=== PATIENT | male | born 1960 | race Caucasian/White ===

== ENCOUNTER 2018-11-21 18:55 | Inpatient (IN) ==
[2018-11-21 19:12] LABS: ABG BASE EXCESS 1.7 mmol/L (-2.0-2.0); ABG HCO3 29.2 mmol/L (22-26)
[2018-11-21 19:13] LABS: ABG ALLEN TEST POS
[2018-11-21] MEDS ORDERED: DUONEB 0.5 MG/3 MG NEB ONE (19:15)
[2018-11-21] MEDS ORDERED: DUONEB 0.5 MG/3 MG ONE (19:21)
[2018-11-21 19:35] LABS: EOSINOPHILS % (AUTO) 0.1 % (0.9-2.9)
--- NOTE | 2018-11-21 19:35 | DR.SOBA ---
HPI Time Seen Time Seen by Provider: 11/21/18 19:33 Primary Care Physician Primary Care Physician: RUBEN HPI Comment HPI Comment: PATIENT SAID SYMTOMS WORSE TODAY. OXYGEN SATURATION WAS LOW IN TRIAGE. NO FEVER. NON PRODUCTIVE COUGH AND WHEEZING WITH LOWER EXTREMITY EDEMA PRESENT. Complaints Chief Complaint Doctors Comments: INCREASING SOB FOR 4 DAYS. Chief Complaint:: SHORT OF BREATH FOR THE LAST 4 DAYS, WORSE TONIGHT Self Treatment fo Chief Complaint: OTC MEDS Reviewed Nurses Notes Reviewed: Yes Source History Provided: Patient Mode of Arrival Mode of Arrival: Ambulatory Timing Onset of Chief Complaint: 11/18/18 Duration Duration: Days Context Onset:: At Rest and With Light Exertion PE Risk Factors:: None History of:: None Currently on:: Neither Prehospital Care:: None Modifying Factors Worsens:: Nothing Improves:: Nothing Associated Signs and Symptoms Associated Signs and Symptoms: Wheeze, Cough and Chest Pain If Chest Pain Quality: Pleuritic Location: Chest Wall If Cough Cough: Nonproductive PMH PMH Past Medical History: No Past Surgical History: No Family History History of Family Medical Conditions: No Social History Does patient currently use any type of tobacco product: Yes Have you used tobacco products in the last 12 months: Yes Type of Tobacco Use: Cigarettes How many years tobacco product used: 40 Does any household member use tobacco: Yes Alcohol Use: None Do you use any recreational Drugs:: No Lives With: Alone Lives Where: Home infectious screening Have you traveled outside the country in the last 6 months?: No Isolation: Standard ROS Review of Systems Constitutional: Weakness and Fatigue Eyes: No Symptoms Reported ENTM: No Symptoms Reported Respiratoy: Non-Productive Cough, Short of Breath and Wheezing Cardiovascular: Chest Pain and Edema Gastrointestinal/Abdominal: No Symptoms Reported Genitourinary: No Symptoms Reported Neurological: No Symptoms Reported Musculoskeletal: No Symptoms Reported Integumentary: Other (CHRONIC STASIS DERMATITIS.) Hematologic/Lymphatic: No Symptoms Reported Endocrine: No Symptoms Reported Psychiatric: No Symptoms Reported All Other Systems: Reviewed and Negative PE Vital Signs Vitals: Temperature 97.6 F Pulse Rate [Apical] 94 Pulse Rate 83 Respiratory Rate 25 Blood Pressure [Left Arm] 147/69 Blood Pressure 131/75 O2 Sat by Pulse Oximetry 86 General Limitations: No Limitations General Appearance: Alert and In No Apparent Distress Head Head Exam: Normal Inspection Eyes Eye exam: Normal Appearance ENT ENT Exam: Normal Exam Neck Neck Exam: Normal Inspection and Trachea Midline; negative Tenderness, Meningismus and Lymphadenopathy Chest Chest Inspection: Symmetric Chest Wall Rise Respiratory Respiratory Exam: Respiratory Distress Respiratory Exam: Bilateral: Wheezing and Bilateral: Rhonchi, Upper: Wheezing and Upper: Rhonchi and Lower: Wheezing and Lower: Rhonchi Cardiovascular Cardiovascular Exam: Regular Rate and Normal Rhythm Abdominal Exam Abdominal Exam: Normal Inspection, Normal Bowel Sounds and Soft; negative Tenderness Extremities 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 Education/Counseling Education/Counseling: Patient Educated On: Diagnosis ROR Labs Reviewed Laboratory Results Reviewed?: Yes Result Diagrams: 11/23/18 05:05 11/23/18 05:05 Laboratory: 11/21/18 19:50 Sputum - Expectorated Sputum Sputum Culture - Preliminary 11/21/18 19:50 Sputum - Expectorated Sputum - Final 11/21/18 19:25 Blood Blood Culture - Preliminary 11/21/18 19:20 Blood Blood Culture - Preliminary WBC 11.5 X10^3/uL (3.6-10.0) H 11/23/18 05:05 RBC 7.49 X10^6/uL (4.7-6.0) H 11/23/18 05:05 Hgb 18.6 g/dL (13.5-18.0) H 11/23/18 05:05 Hct 59.8 % (42.0-54.0) H* 11/23/18 05:05 MCV 79.9 fL (80.0-100.0) L 11/23/18 05:05 MCH 24.9 pg (27.0-34.0) L 11/23/18 05:05 MCHC 31.2 g/dL (33.0-35.0) L 11/23/18 05:05 RDW 19.3 % (11.6-16.5) H 11/23/18 05:05 Plt Count 163 X10^3/uL (150.0-450.0) 11/23/18 05:05 Plt Count Comment Adequate (ADEQUATE) 11/23/18 05:05 MPV 9.5 fL (7.4-11.0) 11/23/18 05:05 Neut % (Auto) 83.5 % (42.0-75.0) H 11/23/18 05:05 Lymph % (Auto) 8.0 % (21.0-51.0) L 11/23/18 05:05 [place] % (Auto) 8.2 % (0.0-13.0) 11/23/18 05:05 Eos % (Auto) 0.0 % (0.9-2.9) L 11/23/18 05:05 Baso % (Auto) 0.3 % (0.2-1.0) 11/23/18 05:05 Neut # (Auto) 9.6 x10^3/uL (2.2-4.8) H 11/23/18 05:05 Lymph # (Auto) 0.9 X10^3/uL (1.3-2.9) L 11/23/18 05:05 [place] # (Auto) 0.9 x10^3/uL (0.3-0.8) H 11/23/18 05:05 Eos # (Auto) 0.0 x10^3/uL (0.0-0.2) 11/23/18 05:05 Baso # (Auto) 0.0 X10^3/uL (0.0-0.1) 11/23/18 05:05 Absolute Nucleated RBC 0.7 /100WBC 11/23/18 05:05 Nucleated RBCs 3 11/23/18 05:05 Giant Platelets Few 11/21/18 19:09 Plt Morphology Comment Normal (NORMAL) 11/23/18 05:05 RBC Morphology Normal (NORMAL) 11/23/18 05:05 Anisocytosis 1+ A 11/21/18 19:09 INR Target Range - 11/21/18 19:08 INR 1.20 (0.8-1.3) 11/21/18 19:08 APTT 31.4 SECONDS (22.9-36.5) 11/21/18 19:08 PTT Comment - 11/21/18 19:08 D-Dimer 271 ng/mL (0-400) 11/21/18 19:09 Sample Site Lrad 11/23/18 05:20 ABG pH 7.310 (7.35-7.45) L 11/23/18 05:20 ABG pCO2 70.0 mmHg (35.0-45.0) H* 11/23/18 05:20 ABG pO2 71.0 mmHg (80.0-100.0) L 11/23/18 05:20 ABG HCO3 35.2 mmol/L (22-26) H* 11/23/18 05:20 ABG O2 Saturation 92.0 % (90-100) 11/23/18 05:20 ABG Base Excess 6.7 mmol/L (-2.0-2.0) H 11/23/18 05:20 Alpesh Test Pos 11/23/18 05:20 A-a Gradient 198.0 mmHg 11/23/18 05:20 FiO2 50.0 11/23/18 05:20 Blood Gas Comments Arley abg well-mtf 11/23/18 05:20 Sodium 138 mmol/L (136-145) 11/23/18 05:05 Corrected Sodium 139 mmol/L (136-145) 11/23/18 05:05 Potassium 4.7 mmol/L (3.5-5.1) 11/23/18 05:05 Chloride 100 mmol/L (98-107) 11/23/18 05:05 Carbon Dioxide 33.3 mmol/L (21-32) H 11/23/18 05:05 BUN 21 mg/dL (7-18) H 11/23/18 05:05 Creatinine 0.74 mg/dL (0.70-1.30) 11/23/18 05:05 Est GFR (MDRD) Af Amer > 60 (>60) 11/23/18 05:05 Est GFR (MDRD) Non-Af > 60 (>60) 11/23/18 05:05 Glucose 145 mg/dL (65-99) H 11/23/18 05:05 Calcium 8.3 mg/dL (8.5-10.1) L 11/23/18 05:05 Corrected Calcium 9.4 mg/dL (8.5-10.1) 11/23/18 05:05 Magnesium 2.1 mg/dL (1.7-2.9) 11/21/18 19:09 Total Bilirubin 0.60 mg/dL (0.2-1.0) 11/23/18 05:05 AST 14 Units/L (15-37) L 11/23/18 05:05 ALT 26 Units/L (12-78) 11/23/18 05:05 Alkaline Phosphatase 59 Units/L (46-116) 11/23/18 05:05 Creatine Kinase 30 Units/L (39-308) L 11/22/18 09:45 CK-MB (CK-2) 1.0 ng/mL (0-4.0) 11/22/18 09:45 CK/CKMB % Calc 3.3 % (<4) 11/22/18 09:45 Troponin I 0.03 ng/mL (0-1.5) 11/22/18 09:45 B-Natriuretic Peptide 69.4 pg/mL (0-79) 11/21/18 19:09 Total Protein 7.3 g/dL (6.4-8.2) 11/23/18 05:05 Albumin 2.6 g/dL (3.4-5.0) L 11/23/18 05:05 Globulin 4.7 g/dL (2.5-4.5) H 11/23/18 05:05 Albumin/Globulin Ratio 0.6 Ratio (1.1-2.1) L 11/23/18 05:05 Triglycerides 61 mg/dL (0-150) 11/22/18 04:04 Cholesterol 88 mg/dL (0-200) 11/22/18 04:04 LDL Cholesterol, Calc 60 mg/dL (0-100) 11/22/18 04:04 HDL Cholesterol 16 mg/dL (40-60) L 11/22/18 04:04 Cholesterol/HDL Ratio 5.5 (0.0-5.0) H 11/22/18 04:04 Specimen Type Random urine 11/21/18 22:38 Urine Color [place] (YELLOW) 11/21/18 22:38 Urine Appearance Hazy (CLEAR) 11/21/18 22:38 Urine pH 6.0 (5.0 - 8.0) 11/21/18 22:38 Ur Specific [place] 1.015 (1.000-1.030) 11/21/18 22:38 Urine Protein 2+ (NEGATIVE) 11/21/18 22:38 Urine Glucose (UA) Negative (NEGATIVE) 11/21/18 22:38 Urine Ketones Negative (NEGATIVE) 11/21/18 22:38 Urine Occult Blood 2+ (NEGATIVE) 11/21/18 22:38 Urine Nitrite Negative (NEGATIVE) 11/21/18 22:38 Urine Bilirubin Negative (NEGATIVE) 11/21/18 22:38 Urine Urobilinogen 1+ (NORMAL) 11/21/18 22:38 Ur Leukocyte Esterase Negative (NEGATIVE) 11/21/18 22:38 Urine RBC 10-20 /HPF (NONE SEEN) 11/21/18 22:38 Urine WBC 0-2 /HPF (NONE SEEN) 11/21/18 22:38 Ur Squamous Epith Cells Rare /HPF (NEGATIVE) 11/21/18 22:38 Urine Bacteria Negative /HPF (NEGATIVE) 11/21/18 22:38 Urine Mucus Few /HPF (NEGATIVE) 11/21/18 22:38 Ur Culture Indicated? No/not indicated 11/21/18 22:38 XRAY XRAY Interpreted by: Radiologist XRAY Findings: REPORT DISCUSS WITH PATIENT. EKG [place]: Normal Rhythm: NSR Diagnosis Discharge Problem: Congestive heart failure
[2018-11-21 19:59] LABS: BLOOD UREA NITROGEN 18 mg/dL (7-18); CALCIUM 8.5 mg/dL (8.5-10.1); CARBON DIOXIDE 29.3 mmol/L (21-32); CHLORIDE 100 mmol/L (98-107); COR NA(FOR HYPERGLY) 136 mmol/L (136-145); SODIUM 134 mmol/L (136-145); TROPONIN I 0.06 ng/mL (0-1.5); eGFR NON BLACK RACES > 60 (>60)
--- NOTE | 2018-11-21 20:00 | RAD ---
HISTORY: Shortness of breath Study: Single view of the chest. Comparison: None. Findings: Cardiomegaly and pulmonary edema. Trace right pleural effusion. No focal consolidation. Osseous structures demonstrate no acute abnormality. IMPRESSION: 1. Cardiomegaly with edema and trace right pleural effusion. Reported By:
[2018-11-21 20:04] LABS: B-TYPE NATRIURETIC PEPTIDE 69.4 pg/mL (0-79)
[2018-11-21 20:15] LABS: ALANINE AMINOTRANSFERASE 34 Units/L (12-78); ALBUMIN 2.8 g/dL (3.4-5.0); ALKALINE PHOSPHATASE 70 Units/L (46-116); ASPARTATE AMINO TRANSFERASE 24 Units/L (15-37); CKMB % 3.1 % (<4); COR CA(FOR HYPOALB) 9.5 mg/dL (8.5-10.1); CREATINE KINASE 51 Units/L (39-308); CREATINE KINASE MB 1.6 ng/mL (0-4.0); MAGNESIUM 2.1 mg/dL (1.7-2.9); TOTAL PROTEIN 7.5 g/dL (6.4-8.2)
[2018-11-21 20:24] LABS: BASOPHILS # (AUTO) 0.1 X10^3/uL (0.0-0.1)
[2018-11-21 20:48] LABS: ABG ALLEN TEST POS; ABG HCO3 30.9 mmol/L (22-26)
[2018-11-21 20:54] LABS: BASOPHILS % (AUTO) 1.2 % (0.2-1.0); LYMPHOCYTES # (AUTO) 2.1 X10^3/uL (1.3-2.9); LYMPHOCYTES % (AUTO) 17.1 % (21.0-51.0); MEAN CORPUSCULAR HEMOGLOBIN 25.4 pg (27.0-34.0); MEAN CORPUSCULAR HGB CONC 31.9 g/dL (33.0-35.0); MEAN CORPUSCULAR VOLUME 79.7 fL (80.0-100.0); MEAN PLATELET VOLUME 9.6 fL (7.4-11.0); MONOCYTES # (AUTO) 1.6 x10^3/uL (0.3-0.8); MONOCYTES % (AUTO) 13.4 % (0.0-13.0); NEUTROPHILS # (AUTO) 8.2 x10^3/uL (2.2-4.8); NEUTROPHILS % (AUTO) 68.2 % (42.0-75.0); PLATELET COUNT 165 X10^3/uL (150.0-450.0); RED BLOOD COUNT 7.77 X10^6/uL (4.7-6.0); RED CELL DISTRIBUTION WIDTH 19.8 % (11.6-16.5); WHITE BLOOD COUNT 12.1 X10^3/uL (3.6-10.0)
[2018-11-21 20:56] LABS: HEMATOCRIT 61.9 % (42.0-54.0); HEMOGLOBIN 19.7 g/dL (13.5-18.0)
[2018-11-21 21:01] LABS: PLATELET MORPHOLOGY COMMENT ABNORMAL (NORMAL)
[2018-11-21 21:02] LABS: ANISOCYTOSIS 1+; GIANT PLATELET FEW
[2018-11-21] MEDS ORDERED: ROCEPHIN VIAL 1 GRAM IVP ONE (21:44)
[2018-11-21] MEDS ORDERED: LASIX IVP ONE (21:50)
[2018-11-21 22:19] LABS: CKMB % 3.4 % (<4); CREATINE KINASE MB 1.3 ng/mL (0-4.0); TROPONIN I 0.06 ng/mL (0-1.5)
[2018-11-21 23:05] LABS: BILIRUBIN,URINE NEGATIVE (NEGATIVE); BLOOD/HEMOGLOBIN,URINE 2+ (NEGATIVE); GLUCOSE, URINE NEGATIVE (NEGATIVE); KETONES,URINE NEGATIVE (NEGATIVE); LEUKOCYTE ESTERASE ,URINE NEGATIVE (NEGATIVE); NITRITES,URINE NEGATIVE (NEGATIVE); PROTEIN,URINE 2+ (NEGATIVE); UROBILINOGEN,URINE 1+ (NORMAL)
[2018-11-21 23:10] LABS: APPEARANCE,URINE HAZY (CLEAR); COLOR,URINE AMBER (YELLOW)
[2018-11-21 23:11] LABS: BACTERIA,URINE NEGATIVE /HPF (NEGATIVE); MUCUS,URINE FEW /HPF (NEGATIVE); SQUAMOUS EPITHELIAL CELL,UR RARE /HPF (NEGATIVE)
[2018-11-22] MEDS: SOLU-Medrol 40 MG VIAL IVP SCH ×4 (00:49→22:00)
[2018-11-22] MEDS: ZITHROMAX INJ 500 MG VIAL 500 MG in D5W 250 ML IV 250 ML IV SCH ×2 (00:49→22:00)
[2018-11-22] MEDS: DUONEB 0.5 MG/3 MG NEB SCH ×6 (01:00→20:13)
[2018-11-22 05:40] LABS: CREATINE KINASE MB 1.2 ng/mL (0-4.0); TROPONIN I 0.05 ng/mL (0-1.5)
[2018-11-22 06:11] LABS: BASOPHILS # (AUTO) 0.1 X10^3/uL (0.0-0.1); EOSINOPHILS % (AUTO) 0.2 % (0.9-2.9); HEMOGLOBIN 18.7 g/dL (13.5-18.0); LYMPHOCYTES % (AUTO) 8.7 % (21.0-51.0); MEAN CORPUSCULAR HGB CONC 31.1 g/dL (33.0-35.0); MEAN CORPUSCULAR VOLUME 80.2 fL (80.0-100.0); MEAN PLATELET VOLUME 9.8 fL (7.4-11.0); MONOCYTES # (AUTO) 0.7 x10^3/uL (0.3-0.8); MONOCYTES % (AUTO) 6.4 % (0.0-13.0); NEUTROPHILS # (AUTO) 9.2 x10^3/uL (2.2-4.8); NEUTROPHILS % (AUTO) 83.7 % (42.0-75.0); PLATELET COUNT 154 X10^3/uL (150.0-450.0); RED BLOOD COUNT 7.48 X10^6/uL (4.7-6.0); RED CELL DISTRIBUTION WIDTH 19.6 % (11.6-16.5)
[2018-11-22 06:26] LABS: ALANINE AMINOTRANSFERASE 38 Units/L (12-78); ALBUMIN 2.8 g/dL (3.4-5.0); ALKALINE PHOSPHATASE 68 Units/L (46-116); ASPARTATE AMINO TRANSFERASE 24 Units/L (15-37); BLOOD UREA NITROGEN 18 mg/dL (7-18); CARBON DIOXIDE 28.9 mmol/L (21-32); CHLORIDE 100 mmol/L (98-107); CHOL/HDL RATIO 5.5 (0.0-5.0); CHOLESTEROL 88 mg/dL (0-200); COR NA(FOR HYPERGLY) 139 mmol/L (136-145); CREATININE 0.73 mg/dL (0.70-1.30); HDL CHOLESTEROL 16 mg/dL (40-60); SODIUM 138 mmol/L (136-145); TOTAL PROTEIN 6.8 g/dL (6.4-8.2); TRIGLYCERIDES 61 mg/dL (0-150); eGFR NON BLACK RACES > 60 (>60)
[2018-11-22 06:59] LABS: PLATELET MORPHOLOGY COMMENT NORMAL (NORMAL)
[2018-11-22] MEDS: LASIX IVP SCH ×2 (08:05→22:00)
[2018-11-22] MEDS: ROCEPHIN VIAL 1 GRAM IVP SCH (08:05)
[2018-11-22 10:32] LABS: CKMB % 3.3 % (<4); TROPONIN I 0.03 ng/mL (0-1.5)
[2018-11-22] MEDS ORDERED: MORPHINE SULFATE INJ 2 MG INJ IVP PRN (13:34)
--- NOTE | 2018-11-22 17:41 | DR.H&P ---
H&P - History & Physical for Day of: H&P Date: 11/21/18 - Chief Complaint Chief Complaint: sob - History of Present Illness History of Present Illness: 58 WM ER ADMISSION WITH CO SOB, CCC WORSE OF LAST WEEK. PT STATES HE HAS BEEN SICK SINCE JORGE, MORE SOB TODAY. PT HAS BILATERAL LE EDEMA AND MILD REDNESS. PT STATES HE HAS BEEN DX WITH COPD AND HTN, DOES NOT TAKE ANY ROUTINE MEDICATION AND DOES NOT HAVE REGULAR DR. PT STATES HE HAS HAD THICK YELLOW- GREEN MUCOUS. CXR IN ER WITH FINDINGS OF CHF AND COPD. PT ADMITTED TO ICU FOR TREATMENT OF ACUTE RESP DISTRESS - Past Medical History Past Medical History: COPD, Hypertension - Past Surgical History Surgical History: Unknown - Social History Does patient currently use any type of tobacco product: Yes Have you used tobacco products in the last 12 months: Yes Type of Tobacco Use: Cigarettes How many years tobacco product used: 40 Does any household member use tobacco: Yes Alcohol Use: Occasionally Drug Use: None - Medications Home Medications: No Known Drug Allergies Allergy (Verified 11/21/18 19:16) CONTINUE taking the following medications aspirin [Aspirin Low Dose] 81 mg PO QDAY 11/21/18 [History] - Review of Systems Constitutional: Weakness, Malaise Eyes: No Symptoms Reported Respiratory: Shortness of Breath Cardiovascular: Edema Gastrointestinal: No Symptoms Reported Genitourinary: No Symptoms Reported Musculoskeletal: No Symptoms Reported Skin: No Symptoms Reported Neurological: Weakness, Confusion (PER FAMILY) - Physical Exam Vital Signs: Temperature 97.9 F Pulse Rate [Apical] 94 Pulse Rate 93 Respiratory Rate 23 Blood Pressure [Left Arm] 147/69 Blood Pressure 157/80 O2 Sat by Pulse Oximetry 86 Oriented: Normal Eyes: Normal Ear: Normal Nose: Normal Throat: Normal Respiratory: Diminished Throughout Cardiovascular: Tachycardia, Edema : Normal Auscultation: Bowel Sounds: Normal Palpation: Normal Tenderness: Normal Skin: Red (MILD BILATERAL LE REDNESS), Tender Musculoskeletal: Right, Left, Leg, Swelling, Tender Psychiatric: Normal Mood Description: Anxious Affect: Anxious Speech Pattern: Clear, Appropriate - Assessment/Plan (1) SOB (shortness of breath) Status: Acute Plan: ADMIT ICU, BIPAP. REPEAT ABG AND AM CXR, IV LASIX. STRICT I & OS. RESP THERAPY. SOLU MEDROL. BP AND CARDIAC MONITORING (2) COPD exacerbation Status: Acute (3) Congestive heart failure Status: Acute - Allergies Allergies/Adverse Reactions: Allergies Allergy/AdvReac Type Severity Reaction Status Date / Time No Known Drug Allergies Allergy Verified 11/21/18 19:16
[2018-11-23] MEDS: DUONEB 0.5 MG/3 MG NEB SCH ×6 (00:58→20:37)
[2018-11-23 05:32] LABS: ABG BASE EXCESS 6.7 mmol/L (-2.0-2.0)
[2018-11-23 05:34] LABS: ABG HCO3 35.2 mmol/L (22-26)
[2018-11-23 05:35] LABS: ABG ALLEN TEST POS
[2018-11-23 06:09] LABS: ALANINE AMINOTRANSFERASE 26 Units/L (12-78); ALBUMIN 2.6 g/dL (3.4-5.0); ALKALINE PHOSPHATASE 59 Units/L (46-116); ASPARTATE AMINO TRANSFERASE 14 Units/L (15-37); BLOOD UREA NITROGEN 21 mg/dL (7-18); CALCIUM 8.3 mg/dL (8.5-10.1); CARBON DIOXIDE 33.3 mmol/L (21-32); CHLORIDE 100 mmol/L (98-107); COR CA(FOR HYPOALB) 9.4 mg/dL (8.5-10.1); COR NA(FOR HYPERGLY) 139 mmol/L (136-145); CREATININE 0.74 mg/dL (0.70-1.30); SODIUM 138 mmol/L (136-145); TOTAL PROTEIN 7.3 g/dL (6.4-8.2); eGFR NON BLACK RACES > 60 (>60)
[2018-11-23 06:21] LABS: BASOPHILS % (AUTO) 0.3 % (0.2-1.0); HEMOGLOBIN 18.6 g/dL (13.5-18.0); LYMPHOCYTES # (AUTO) 0.9 X10^3/uL (1.3-2.9); MEAN CORPUSCULAR HEMOGLOBIN 24.9 pg (27.0-34.0); MEAN CORPUSCULAR HGB CONC 31.2 g/dL (33.0-35.0); MEAN CORPUSCULAR VOLUME 79.9 fL (80.0-100.0); MEAN PLATELET VOLUME 9.5 fL (7.4-11.0); MONOCYTES # (AUTO) 0.9 x10^3/uL (0.3-0.8); MONOCYTES % (AUTO) 8.2 % (0.0-13.0); NEUTROPHILS # (AUTO) 9.6 x10^3/uL (2.2-4.8); NEUTROPHILS % (AUTO) 83.5 % (42.0-75.0); PLATELET COUNT 163 X10^3/uL (150.0-450.0); RED BLOOD COUNT 7.49 X10^6/uL (4.7-6.0); RED CELL DISTRIBUTION WIDTH 19.3 % (11.6-16.5); WHITE BLOOD COUNT 11.5 X10^3/uL (3.6-10.0)
[2018-11-23 06:25] LABS: HEMATOCRIT 59.8 % (42.0-54.0)
[2018-11-23] MEDS: SOLU-Medrol 40 MG VIAL IVP SCH ×3 (06:53→21:03)
[2018-11-23 06:59] LABS: PLATELET MORPHOLOGY COMMENT NORMAL (NORMAL)
--- NOTE | 2018-11-23 07:08 | RAD ---
HISTORY: Shortness of breath Study: Chest AP portable Comparison: 11/21/2018 Findings: The heart is enlarged. Pulmonary venous congestion is present. The lungs are hyperinflated. Diffuse interstitial lung changes are present. These could be due to fibrosis or edema. No alveolar infiltrates or pleural effusions are identified. The bony thorax is unremarkable. IMPRESSION: Moderate cardiomegaly with mild pulmonary venous congestion Diffuse interstitial lung changes which could be due to fibrosis or edema. Reported By:
[2018-11-23] MEDS: LASIX IVP SCH (09:00)
[2018-11-23] MEDS: ROCEPHIN VIAL 1 GRAM IVP SCH (09:00)
[2018-11-23] MEDS ORDERED: NYSTATIN POWDER ONE (17:52)
[2018-11-23] MEDS: NYSTATIN POWDER TOP SCH ×2 (18:11→22:00)
[2018-11-23] MEDS: ZITHROMAX INJ 500 MG VIAL 500 MG in D5W 250 ML IV 250 ML IV SCH (20:57)
[2018-11-23] MEDS: ZESTRIL TAB 10 MG PO SCH (20:58)
[2018-11-24] MEDS: DUONEB 0.5 MG/3 MG NEB SCH ×6 (00:59→21:55)
[2018-11-24] MEDS: SOLU-Medrol 40 MG VIAL IVP SCH ×3 (05:46→21:33)
[2018-11-24 06:09] LABS: ABG BASE EXCESS 9.7 mmol/L (-2.0-2.0)
[2018-11-24 06:11] LABS: ABG ALLEN TEST POS; ABG HCO3 36.5 mmol/L (22-26)
[2018-11-24 06:17] LABS: ALANINE AMINOTRANSFERASE 25 Units/L (12-78); ALBUMIN 2.7 g/dL (3.4-5.0); ALKALINE PHOSPHATASE 57 Units/L (46-116); ASPARTATE AMINO TRANSFERASE 12 Units/L (15-37); BLOOD UREA NITROGEN 18 mg/dL (7-18); CALCIUM 8.6 mg/dL (8.5-10.1); CARBON DIOXIDE 34.1 mmol/L (21-32); CHLORIDE 100 mmol/L (98-107); COR CA(FOR HYPOALB) 9.6 mg/dL (8.5-10.1); COR NA(FOR HYPERGLY) 141 mmol/L (136-145); CREATININE 0.71 mg/dL (0.70-1.30); SODIUM 140 mmol/L (136-145); TOTAL PROTEIN 7.2 g/dL (6.4-8.2); eGFR NON BLACK RACES > 60 (>60)
[2018-11-24 06:26] VITALS: BMI 46.5
[2018-11-24 06:36] LABS: BASOPHILS % (AUTO) 0.4 % (0.2-1.0); LYMPHOCYTES # (AUTO) 1.1 X10^3/uL (1.3-2.9); LYMPHOCYTES % (AUTO) 9.4 % (21.0-51.0); MEAN CORPUSCULAR HEMOGLOBIN 25.1 pg (27.0-34.0); MEAN CORPUSCULAR HGB CONC 31.3 g/dL (33.0-35.0); MEAN CORPUSCULAR VOLUME 80.1 fL (80.0-100.0); MEAN PLATELET VOLUME 9.3 fL (7.4-11.0); MONOCYTES # (AUTO) 0.7 x10^3/uL (0.3-0.8); MONOCYTES % (AUTO) 6.4 % (0.0-13.0); NEUTROPHILS # (AUTO) 9.7 x10^3/uL (2.2-4.8); NEUTROPHILS % (AUTO) 83.8 % (42.0-75.0); PLATELET COUNT 175 X10^3/uL (150.0-450.0); RED BLOOD COUNT 7.56 X10^6/uL (4.7-6.0); RED CELL DISTRIBUTION WIDTH 19.5 % (11.6-16.5); WHITE BLOOD COUNT 11.6 X10^3/uL (3.6-10.0)
--- NOTE | 2018-11-24 06:37 | RAD ---
HISTORY: Shortness of breath Study: Chest AP portable Comparison: 11/23/2018 Findings: The heart remains enlarged. No definite congestive heart failure is noted. The lungs remain hyperinflated. Diffuse interstitial lung changes are stable. No acute alveolar infiltrates or pleural effusions are identified. The bony thorax is unremarkable. IMPRESSION: Moderate cardiomegaly without definite congestive heart failure Diffuse interstitial lung changes, stable Reported By:
[2018-11-24 06:44] LABS: HEMATOCRIT 60.6 % (42.0-54.0)
[2018-11-24 06:59] LABS: PLATELET MORPHOLOGY COMMENT NORMAL (NORMAL)
[2018-11-24] MEDS: ZESTRIL TAB 10 MG PO SCH (08:35)
[2018-11-24] MEDS: LOVENOX INJ 40 MG SYR SC SCH (08:35)
[2018-11-24] MEDS: ROCEPHIN VIAL 1 GRAM IVP SCH (08:35)
[2018-11-24] MEDS: NYSTATIN POWDER TOP SCH ×2 (08:35→21:33)
[2018-11-24] MEDS ORDERED: NS 500 ML IV 500 ML IV ONE (09:44)
[2018-11-24] MEDS: LEVAQUIN PREMIX IV 750 MG 750 MG/150 ML BAG IV SCH (09:54)
[2018-11-24] MEDS: LASIX IVP SCH (09:54)
[2018-11-24] MEDS ORDERED: NS 500 ML IV 500 ML IV SCH (10:00)
[2018-11-24] MEDS: ROBITUSSIN DM PO SCH ×3 (13:53→21:33)
--- NOTE | 2018-11-24 15:46 | PCM.PROG ---
Progress Note - Progress Note for Day of Date of Exam: 11/24/18 - Subjective Subjective: 58 WM ADMITTED WITH SOB DUE TO CHF AND COPD WITH SPUTUM POSTIVE FOR STREPTOCOCCUS. PT CURRENTLY ON IV ATBX LEVAQUIN AND ROCEPHIN. PT HAS HX OF CHRONIC RESP FAILURE, HOWEVER HAS NOT BEEN UNDER CARE OF PHYSICIAN FOR DISEASE MANAGEMENT. PT NORMALLY COMPENSATES, CURRENTLY DOWN TO 2 LITER NC, CONTINUES TO SEVERE SOB WITH EXERTION PER NURSING STAFF. O2 AT 85-88% ON 2LITERS NC THIS AM, DESATS TO LOWER 80'S WITH CONVERSATION. - Past Medical Family Social History Past Med/Fam/Surg Hx: No changes since H&P Allergies: Allergies No Known Drug Allergies Allergy (Verified 11/21/18 19:16) - Review of Systems ROS: No change since H&P - Vital Signs and I&O's Vital Signs: Temperature 98.0 F Pulse Rate [Apical] 94 Pulse Rate 92 Respiratory Rate 25 Blood Pressure [Left Arm] 147/69 Blood Pressure 141/63 O2 Sat by Pulse Oximetry 78 Intake and Output: Intake & Output 11/22/18 11/23/18 11/24/18 11/25/18 11:59 11:59 11:59 11:59 Intake Total 300 / 300 1770 / 1770 1330 / 1330 Output Total 1600 / 1600 2450 / 2450 2300 / 2300 Balance -1300 / -1300 -680 / -680 -970 / -970 - Physical Exam Oriented: Normal Eyes: Normal Ear: Normal Nose: Normal Throat: Normal Respiratory: Diminished, Wheezes Cardiovascular: Tachycardia, Edema : Normal Auscultation: Bowel Sounds: Normal Tenderness: Normal Skin: Red (MILD BILATERAL LE REDNESS), Tender Musculoskeletal: Right, Left, Leg, Swelling, Tender Psychiatric: Normal Mood Description: Anxious Affect: Anxious Speech Pattern: Clear, Appropriate - Laboratory and Diagnostics Result Diagrams: 11/24/18 05:50 11/24/18 05:50 Labs: 11/21/18 19:50 Sputum - Expectorated Sputum Sputum Culture - Final Streptococcus Pneumoniae 11/21/18 19:50 Sputum - Expectorated Sputum - Final 11/21/18 19:25 Blood Blood Culture - Preliminary 11/21/18 19:20 Blood Blood Culture - Preliminary Laboratory WBC 11.6 X10^3/uL (3.6-10.0) H 11/24/18 05:50 RBC 7.56 X10^6/uL (4.7-6.0) H 11/24/18 05:50 Hgb 19.0 g/dL (13.5-18.0) H 11/24/18 05:50 Hct 60.6 % (42.0-54.0) H* 11/24/18 05:50 MCV 80.1 fL (80.0-100.0) 11/24/18 05:50 MCH 25.1 pg (27.0-34.0) L 11/24/18 05:50 MCHC 31.3 g/dL (33.0-35.0) L 11/24/18 05:50 RDW 19.5 % (11.6-16.5) H 11/24/18 05:50 Plt Count 175 X10^3/uL (150.0-450.0) 11/24/18 05:50 Plt Count Comment Adequate (ADEQUATE) 11/24/18 05:50 MPV 9.3 fL (7.4-11.0) 11/24/18 05:50 Neut % (Auto) 83.8 % (42.0-75.0) H 11/24/18 05:50 Lymph % (Auto) 9.4 % (21.0-51.0) L 11/24/18 05:50 [place] % (Auto) 6.4 % (0.0-13.0) 11/24/18 05:50 Eos % (Auto) 0.0 % (0.9-2.9) L 11/24/18 05:50 Baso % (Auto) 0.4 % (0.2-1.0) 11/24/18 05:50 Neut # (Auto) 9.7 x10^3/uL (2.2-4.8) H 11/24/18 05:50 Lymph # (Auto) 1.1 X10^3/uL (1.3-2.9) L 11/24/18 05:50 [place] # (Auto) 0.7 x10^3/uL (0.3-0.8) 11/24/18 05:50 Eos # (Auto) 0.0 x10^3/uL (0.0-0.2) 11/24/18 05:50 Baso # (Auto) 0.0 X10^3/uL (0.0-0.1) 11/24/18 05:50 Absolute Nucleated RBC 0.8 /100WBC 11/24/18 05:50 Nucleated RBCs 3 11/23/18 05:05 Giant Platelets Few 11/21/18 19:09 Plt Morphology Comment Normal (NORMAL) 11/24/18 05:50 RBC Morphology Normal (NORMAL) 11/24/18 05:50 Anisocytosis 1+ A 11/21/18 19:09 INR Target Range - 11/21/18 19:08 INR 1.20 (0.8-1.3) 11/21/18 19:08 APTT 31.4 SECONDS (22.9-36.5) 11/21/18 19:08 PTT Comment - 11/21/18 19:08 D-Dimer 271 ng/mL (0-400) 11/21/18 19:09 Sample Site Lrad 11/24/18 05:57 ABG pH 7.400 (7.35-7.45) 11/24/18 05:57 ABG pCO2 59.0 mmHg (35.0-45.0) H* 11/24/18 05:57 ABG pO2 39.0 mmHg (80.0-100.0) L* 11/24/18 05:57 ABG HCO3 36.5 mmol/L (22-26) H* 11/24/18 05:57 ABG O2 Saturation 74.0 % (90-100) L* 11/24/18 05:57 ABG Base Excess 9.7 mmol/L (-2.0-2.0) H 11/24/18 05:57 Alpesh Test Pos 11/24/18 05:57 A-a Gradient 87.0 mmHg 11/24/18 05:57 FiO2 28.0 11/24/18 05:57 Blood Gas Comments Arley abg well-mtf 11/24/18 05:57 Sodium 140 mmol/L (136-145) 11/24/18 05:50 Corrected Sodium 141 mmol/L (136-145) 11/24/18 05:50 Potassium 4.5 mmol/L (3.5-5.1) 11/24/18 05:50 Chloride 100 mmol/L (98-107) 11/24/18 05:50 Carbon Dioxide 34.1 mmol/L (21-32) H 11/24/18 05:50 BUN 18 mg/dL (7-18) 11/24/18 05:50 Creatinine 0.71 mg/dL (0.70-1.30) 11/24/18 05:50 Est GFR (MDRD) Af Amer > 60 (>60) 11/24/18 05:50 Est GFR (MDRD) Non-Af > 60 (>60) 11/24/18 05:50 Glucose 129 mg/dL (65-99) H 11/24/18 05:50 Calcium 8.6 mg/dL (8.5-10.1) 11/24/18 05:50 Corrected Calcium 9.6 mg/dL (8.5-10.1) 11/24/18 05:50 Magnesium 2.1 mg/dL (1.7-2.9) 11/21/18 19:09 Total Bilirubin 0.80 mg/dL (0.2-1.0) 11/24/18 05:50 AST 12 Units/L (15-37) L 11/24/18 05:50 ALT 25 Units/L (12-78) 11/24/18 05:50 Alkaline Phosphatase 57 Units/L (46-116) 11/24/18 05:50 Creatine Kinase 30 Units/L (39-308) L 11/22/18 09:45 CK-MB (CK-2) 1.0 ng/mL (0-4.0) 11/22/18 09:45 CK/CKMB % Calc 3.3 % (<4) 11/22/18 09:45 Troponin I 0.03 ng/mL (0-1.5) 11/22/18 09:45 B-Natriuretic Peptide 69.4 pg/mL (0-79) 11/21/18 19:09 Total Protein 7.2 g/dL (6.4-8.2) 11/24/18 05:50 Albumin 2.7 g/dL (3.4-5.0) L 11/24/18 05:50 Globulin 4.5 g/dL (2.5-4.5) 11/24/18 05:50 Albumin/Globulin Ratio 0.6 Ratio (1.1-2.1) L 11/24/18 05:50 Triglycerides 61 mg/dL (0-150) 11/22/18 04:04 Cholesterol 88 mg/dL (0-200) 11/22/18 04:04 LDL Cholesterol, Calc 60 mg/dL (0-100) 11/22/18 04:04 HDL Cholesterol 16 mg/dL (40-60) L 11/22/18 04:04 Cholesterol/HDL Ratio 5.5 (0.0-5.0) H 11/22/18 04:04 Specimen Type Random urine 11/21/18 22:38 Urine Color [place] (YELLOW) 11/21/18 22:38 Urine Appearance Hazy (CLEAR) 11/21/18 22:38 Urine pH 6.0 (5.0 - 8.0) 11/21/18 22:38 Ur Specific [place] 1.015 (1.000-1.030) 11/21/18 22:38 Urine Protein 2+ (NEGATIVE) 11/21/18 22:38 Urine Glucose (UA) Negative (NEGATIVE) 11/21/18 22:38 Urine Ketones Negative (NEGATIVE) 11/21/18 22:38 Urine Occult Blood 2+ (NEGATIVE) 11/21/18 22:38 Urine Nitrite Negative (NEGATIVE) 11/21/18 22:38 Urine Bilirubin Negative (NEGATIVE) 11/21/18 22:38 Urine Urobilinogen 1+ (NORMAL) 11/21/18 22:38 Ur Leukocyte Esterase Negative (NEGATIVE) 11/21/18 22:38 Urine RBC 10-20 /HPF (NONE SEEN) 11/21/18 22:38 Urine WBC 0-2 /HPF (NONE SEEN) 11/21/18 22:38 Ur Squamous Epith Cells Rare /HPF (NEGATIVE) 11/21/18 22:38 Urine Bacteria Negative /HPF (NEGATIVE) 11/21/18 22:38 Urine Mucus Few /HPF (NEGATIVE) 11/21/18 22:38 Ur Culture Indicated? No/not indicated 11/21/18 22:38 - Plan (1) SOB (shortness of breath) Status: Acute Plan: ICU, BIPAP PRN. REPEAT ABG AND AM CT CHEST WITH CONTRAST IV LASIX. IV ATBX. STRICT I & OS. RESP THERAPY. SOLU MEDROL. BP AND CARDIAC MONITORING (2) COPD exacerbation Status: Acute (3) Congestive heart failure Status: Acute (4) Chronic respiratory failure with hypercapnia Status: Acute
[2018-11-24] MEDS: PROTONIX INJ 40 MG VIAL IVP SCH (16:57)
[2018-11-24] MEDS: PULMICORT NEB TX 0.5 MG NEB SCH ×2 (17:23→21:56)
[2018-11-25] MEDS: DUONEB 0.5 MG/3 MG NEB SCH ×3 (01:59→08:51)
[2018-11-25] MEDS ORDERED: NS 100 ML IV 100 ML IV ONE (04:32)
--- NOTE | 2018-11-25 06:36 | CT ---
CT chest with contrast Indication: Shortness of breath, COPD, pneumonia, hypoxia Technique: Helical CT images of the chest were obtained with IV contrast. Reformatted images in the coronal and sagittal planes were also generated for review. Comparison: None Findings: The heart is mildly enlarged without significant pericardial effusion. Moderate coronary atherosclerotic disease noted. The thoracic aorta and proximal great vessels are minimally calcified without aneurysm. There is mild dilation of the central pulmonary arteries, suggestive for underlying pulmonary arterial hypertension. No central or large segmental pulmonary arterial filling defects are identified. The central airways are patent. There is no mediastinal or bulky hilar lymphadenopathy. There is upper lobe predominant centrilobular emphysema. There is a 5 mm noncalcified nodule within the right upper lobe on axial image 40 series 5. There is minimal subsegmental atelectasis of the bilateral lower lobes. The remainder of the lungs are clear. No pleural effusion or pneumothorax identified. Limited images of the upper abdomen demonstrate no acute abnormality. No aggressive osseous lesions are identified. Impression: No acute cardiopulmonary abnormality. Mild cardiomegaly and moderate coronary atherosclerotic disease without congestive failure. Prominence of the central pulmonary arteries, suggestive for underlying PAH. Emphysema and 5 mm right upper lobe nodule, for which follow-up CT in 6 months is recommended to evaluate for interval change. Reported By:
[2018-11-25 07:26] LABS: ALANINE AMINOTRANSFERASE 33 Units/L (12-78); ALBUMIN 2.9 g/dL (3.4-5.0); ALKALINE PHOSPHATASE 58 Units/L (46-116); ASPARTATE AMINO TRANSFERASE 21 Units/L (15-37); BASOPHILS % (AUTO) 0.3 % (0.2-1.0); BLOOD UREA NITROGEN 19 mg/dL (7-18); CALCIUM 8.9 mg/dL (8.5-10.1); CARBON DIOXIDE 33.3 mmol/L (21-32); CHLORIDE 98 mmol/L (98-107); COR CA(FOR HYPOALB) 9.8 mg/dL (8.5-10.1); COR NA(FOR HYPERGLY) 137 mmol/L (136-145); LYMPHOCYTES # (AUTO) 0.9 X10^3/uL (1.3-2.9); MEAN CORPUSCULAR HGB CONC 31.4 g/dL (33.0-35.0); MEAN CORPUSCULAR VOLUME 79.5 fL (80.0-100.0); MEAN PLATELET VOLUME 9.4 fL (7.4-11.0); MONOCYTES # (AUTO) 0.9 x10^3/uL (0.3-0.8); MONOCYTES % (AUTO) 9.3 % (0.0-13.0); NEUTROPHILS # (AUTO) 8.3 x10^3/uL (2.2-4.8); NEUTROPHILS % (AUTO) 81.4 % (42.0-75.0); PLATELET COUNT 197 X10^3/uL (150.0-450.0); RED BLOOD COUNT 7.78 X10^6/uL (4.7-6.0); RED CELL DISTRIBUTION WIDTH 19.5 % (11.6-16.5); SODIUM 137 mmol/L (136-145); TOTAL PROTEIN 7.4 g/dL (6.4-8.2); WHITE BLOOD COUNT 10.2 X10^3/uL (3.6-10.0); eGFR NON BLACK RACES > 60 (>60)
[2018-11-25 08:05] LABS: HEMATOCRIT 61.9 % (42.0-54.0); HEMOGLOBIN 19.5 g/dL (13.5-18.0)
[2018-11-25] MEDS: PULMICORT NEB TX 0.5 MG NEB SCH (08:51)
[2018-11-25] MEDS: LASIX IVP SCH (08:53)
[2018-11-25] MEDS: LEVAQUIN PREMIX IV 750 MG 750 MG/150 ML BAG IV SCH (08:53)
[2018-11-25] MEDS: ZESTRIL TAB 10 MG PO SCH (08:54)
[2018-11-25] MEDS: LOVENOX INJ 40 MG SYR SC SCH (08:54)
[2018-11-25] MEDS: ROCEPHIN VIAL 1 GRAM IVP SCH (08:54)
[2018-11-25] MEDS: PROTONIX INJ 40 MG VIAL IVP SCH (08:54)
[2018-11-25] MEDS: NYSTATIN POWDER TOP SCH (08:54)
[2018-11-25] MEDS: ROBITUSSIN DM PO SCH (08:54)
[2018-11-25 09:05] LABS: PLATELET MORPHOLOGY COMMENT NORMAL (NORMAL)
[2018-11-25 11:26] VITALS: BP 136/63
== END 2018-11-25 11:20 | disposition home or self-care (01) | DRG 292 ==
LOC: ER 18:56 → ICU 22:46
PROVIDERS: ADMIT Internal Medicine; ATTEND Internal Medicine
DX: D75.1 Secondary polycythemia; J96.12 Chronic respiratory failure with hypercapnia; B95.3 Streptococcus pneumoniae as the cause of diseases classified elsewhere; I50.9 Heart failure, unspecified; R60.0 Localized edema; E87.6 Hypokalemia; J44.1 Chronic obstructive pulmonary disease with (acute) exacerbation; R94.31 Abnormal electrocardiogram [ECG] [EKG]
CPT/HCPCS: 36415; 36600; 71010; 71045; 71260; 80053; 80061; 81001; 82550; 82553; 82803; 83735; 83880; 84484; 85025; 85378; 85610; 85730; 87040; 87070; 87077; 87186; 87205; 93005; 93010; 93306; 94640; 94660; 96365; 96374; 96375; 99221; 99284; A4216; A4222; A4618; A7030; C9113; J0456; J0696; J1650; J1940; J1956; J2920; J7040; J7050; J7060; J7620; J7626

== ENCOUNTER 2019-10-02 15:37 | Inpatient (IN) ==
[2019-10-02 15:48] VITALS: BMI 45.9
--- NOTE | 2019-10-02 16:00 | DR.GENAD ---
HPI Time Seen Time Seen by Provider: 10/02/19 15:48 PCP Primary Care Physician: FRITZ PATEL Complaint/Symptoms Chief Complaint Doctors Comments: 59yo male presented for blood clot in leg. Pt reports he had CTA LE that showed blood clot in his leg. Today he has not complaints but reports having worsening LE edema with some erythema. He has kn own COPD and chronic hypoxia and is not on home o2 or CPAP. Denies any SOB, CP, Abd pain. Chief Complaint:: STATES 3 CT SCAN ON 09/21/19, MD CALLED ON TUESDAY AND TOLD HIM TO COME TO THE ED D/T 2 BLOCKAGES IN HIS LEFT LEG. STATES HE TOLD MD HE COULDN'T COME THIS WEEKEND D/T "FRIEND" COMING FROM [place]. Nurses notes reviewed Nurses Notes Review: Yes Source History Provided: Patient Mode of Arrival Mode of Arrival: Ambulatory Timing Onset of Chief Complaint: 09/30/19 Came on: Gradually Duration Duration: Intermittent Duration: Days Modifying Factors Worsens:: nothing Improves:: nothing Associated Signs and Symptoms Associated Signs and Symptoms: LE edema PMH PMH Past Medical History: Yes Past Medical History: CHF, COPD and Hypertension Past Surgical History: Yes Surgical History: Ortho Surgery Past Surgical History Comment: RIGHT SHOULDER SHOULDER 3RD FINGER ON LEFT HAND Family History Family Medical History: Diabetes Mellitus and Hypertension Social History Does patient currently use any type of tobacco product: Yes Have you used tobacco products in the last 12 months: Yes Type of Tobacco Use: Cigarettes How many years tobacco product used: 35 Does any household member use tobacco: No Alcohol Use: Occasionally Do you use any recreational Drugs:: No Lives With: Alone Lives Where: Home infectious screening In the last 2 months have you had wt loss of >10#?: NO Have you had fever, night sweats or hemotysis?: No Have you traveled outside the country in the last 6 months?: No Isolation: Standard ROS Review of Systems Constitutional: negative Chills, Fever and Weakness Eyes: negative Blurred Vision ENTM: negative Nose Congestion Respiratoy: negative Dry Cough and Short of Breath Cardiovascular: Edema and Palpitations; negative Chest Pain Gastrointestinal/Abdominal: negative Abdominal Pain, Diarrhea and Vomiting Genitourinary: negative Dysuria and Hematuria Neurological: negative Weakness and Problems Walking Musculoskeletal: negative Joint Swelling Integumentary: Rash Endocrine: Unexplained Weight Gain Psychiatric: negative Depression All Other Systems: Reviewed and Negative PE Vital Signs Vitals: Temperature 97.6 F Pulse Rate 94 Respiratory Rate 18 Blood Pressure [Left Arm] 147/69 Blood Pressure 172/92 O2 Sat by Pulse Oximetry 76 Head Head Exam: Normal Inspection, Atraumatic and Normocephalic Eyes Eye exam: Normal Appearance, PERRL and EOMI; negative Scleral Icterus ENT ENT Exam: Normal Exam, Normal Oropharynx and Mucous Membranes Moist Nose Exam: Normal Nose Exam Mouth Exam: Normal Inspection Neck Neck Exam: Normal Inspection and Full ROM Respiratory Respiratory Exam: Other; negative Respiratory Distress Respiratory Exam: Bilateral: Decreased Breath Sounds Cardiovascular Cardiovascular Exam: Normal Rhythm and Tachycardia Abdominal Exam Abdominal Exam: Normal Inspection, Normal Bowel Sounds and Soft; negative Tenderness Extremities Extremities Exam: Full ROM, Normal Capillary Refill and Edema (4+) Back Back Exam: Normal Inspection and Full ROM Neurologic Neurological Exam: Alert, Oriented X3 and Normal Gait; negative Motor Sensory Deficit and Reflexes Normal Psychiatric Psychiatric Exam: Normal Affect and Normal Mood Skin Skin Exam: Warm, Dry, Intact, Erythema and Other (chronic vensoustasis) MDM Additional Information Additional Information Obtained From: Old Records Differential Diagnosis Differential Diagnosis: CHF/COPD/chronic hypoxia COURSE Reevaluation 1st: Improved (pt O2 sat improved with Oxygen. Pt stable and will admit) Consultation Consultation Comments: Spoke to kita Abarca [employer] for admission and accepted and will see in hospital. Education/Counseling Education/Counseling: Patient, Education and Counseling Educated On: Treatment, Diagnosis, Prognosis and Needs for Follow Up (pcp) ROR Labs Reviewed Laboratory Results Reviewed?: Yes Result Diagrams: 10/02/19 16:12 10/02/19 16:12 Laboratory: WBC 6.4 X10^3/uL (3.6-10.0) 10/02/19 16:12 RBC 8.22 X10^6/uL (4.7-6.0) H 10/02/19 16:12 Hgb 21.0 g/dL (13.5-18.0) H* 10/02/19 16:12 Hct 65.9 % (42.0-54.0) H* 10/02/19 16:12 MCV 80.1 fL (80.0-100.0) 10/02/19 16:12 MCH 25.5 pg (27.0-34.0) L 10/02/19 16:12 MCHC 31.9 g/dL (33.0-35.0) L 10/02/19 16:12 RDW 22.4 % (11.6-16.5) H 10/02/19 16:12 Plt Count 147 X10^3/uL (150.0-450.0) L 10/02/19 16:12 Plt Count Comment Adequate (ADEQUATE) 10/02/19 16:12 MPV 9.5 fL (7.4-11.0) 10/02/19 16:12 Neut % (Auto) 60.9 % (42.0-75.0) 10/02/19 16:12 Lymph % (Auto) 23.0 % (21.0-51.0) 10/02/19 16:12 Fountain % (Auto) 13.9 % (0.0-13.0) H 10/02/19 16:12 Eos % (Auto) 2.0 % (0.9-2.9) 10/02/19 16:12 Baso % (Auto) 0.2 % (0.2-1.0) 10/02/19 16:12 Neut # (Auto) 3.9 x10^3/uL (2.2-4.8) 10/02/19 16:12 Lymph # (Auto) 1.5 X10^3/uL (1.3-2.9) 10/02/19 16:12 Fountain # (Auto) 0.9 x10^3/uL (0.3-0.8) H 10/02/19 16:12 Eos # (Auto) 0.1 x10^3/uL (0.0-0.2) 10/02/19 16:12 Baso # (Auto) 0.0 X10^3/uL (0.0-0.1) 10/02/19 16:12 Absolute Nucleated RBC 0.6 /100WBC 10/02/19 16:12 Plt Morphology Comment Normal (NORMAL) 10/02/19 16:12 RBC Morphology Abnormal (NORMAL) 10/02/19 16:12 Anisocytosis 2+ A 10/02/19 16:12 Sample Site Rb 10/02/19 17:30 ABG pH 7.370 (7.35-7.45) 10/02/19 17:30 ABG pCO2 51.0 mmHg (35.0-45.0) H* 10/02/19 17:30 ABG pO2 34.0 mmHg (80.0-100.0) L* 10/02/19 17:30 ABG HCO3 29.5 mmol/L (22-26) H 10/02/19 17:30 ABG O2 Saturation 63.0 % (90-100) L* 10/02/19 17:30 ABG Base Excess 3.3 mmol/L (-2.0-2.0) H 10/02/19 17:30 Alpehs Test Na 10/02/19 17:30 A-a Gradient 52.0 mmHg 10/02/19 17:30 FiO2 21.0 10/02/19 17:30 Blood Gas Comments Arley well cb 10/02/19 17:30 Sodium 139 mmol/L (136-145) 10/02/19 16:12 Corrected Sodium TNP 10/02/19 16:12 Potassium 4.8 mmol/L (3.5-5.1) 10/02/19 16:12 Chloride 102 mmol/L (98-107) 10/02/19 16:12 Carbon Dioxide 30.6 mmol/L (21-32) 10/02/19 16:12 BUN 19 mg/dL (7-18) H 10/02/19 16:12 Creatinine 1.26 mg/dL (0.70-1.30) 10/02/19 16:12 Est GFR (MDRD) Af Amer > 60 (>60) 10/02/19 16:12 Est GFR (MDRD) Non-Af > 60 (>60) 10/02/19 16:12 Glucose 98 mg/dL (65-99) 10/02/19 16:12 Calcium 9.0 mg/dL (8.5-10.1) 10/02/19 16:12 Troponin I < 0.02 ng/mL (0-1.5) 10/02/19 16:12 B-Natriuretic Peptide 20.4 pg/mL (0-79) 10/02/19 16:12 Other Results Comments: BMP Cr 1.26 CO2 30.6, Hb 21 HCT 65.9 elevated Trop neg BNP 20 ABG pH 7.37 CO2 51 pO2 [address] chest: no effusion/copd, NAF, PAH US Neg DVT XRAY XRAY Interpreted by: Radiologist XRAY Findings: CXR reviewed EKG Rate: 96 Dunlap: Normal Rhythm: NSR Block: IVCD Hypertrophy: AVTAR ST: Ischemia (Lead iii and avf, interpeted by me) Opioid Opioid Risk Tool Total: 0 Total Score Risk Category: Low Risk Copyright: [facility] predicting aberrant behaviors Diagnosis Discharge Problem: Acute exacerbation of chronic obstructive pulmonary disease, Acute and chronic respiratory failure with hypoxia, Erythrocyte abnormality Congestive heart failure Qualifiers: Heart failure type: right-sided Heart failure chronicity: acute on chronic Qualified Code(s): I50.813 - Acute on chronic right heart failure Instructions Forms: Excuse From Work Patient Portal ADDITIONAL NOTES Additional Notes Additional Notes: I have personally reviewed your medications, lab results, imaging and time was spent discussion results. Patient educated on their health issue. They verbalized their understanding and agreed with plan of care. Instruction were given to patient at discharge. Condition: Stable Disposition: Admission
[2019-10-02 16:32] LABS: BLOOD UREA NITROGEN 19 mg/dL (7-18); CARBON DIOXIDE 30.6 mmol/L (21-32); CHLORIDE 102 mmol/L (98-107); CREATININE 1.26 mg/dL (0.70-1.30); SODIUM 139 mmol/L (136-145); eGFR NON BLACK RACES > 60 (>60)
[2019-10-02] MEDS ORDERED: NORVASC TAB 5 MG ONE (16:45)
[2019-10-02 16:55] LABS: BASOPHILS % (AUTO) 0.2 % (0.2-1.0); EOSINOPHILS # (AUTO) 0.1 x10^3/uL (0.0-0.2); LYMPHOCYTES # (AUTO) 1.5 X10^3/uL (1.3-2.9); MEAN CORPUSCULAR HEMOGLOBIN 25.5 pg (27.0-34.0); MEAN CORPUSCULAR HGB CONC 31.9 g/dL (33.0-35.0); MEAN CORPUSCULAR VOLUME 80.1 fL (80.0-100.0); MEAN PLATELET VOLUME 9.5 fL (7.4-11.0); MONOCYTES # (AUTO) 0.9 x10^3/uL (0.3-0.8); MONOCYTES % (AUTO) 13.9 % (0.0-13.0); NEUTROPHILS # (AUTO) 3.9 x10^3/uL (2.2-4.8); NEUTROPHILS % (AUTO) 60.9 % (42.0-75.0); PLATELET COUNT 147 X10^3/uL (150.0-450.0); RED BLOOD COUNT 8.22 X10^6/uL (4.7-6.0); RED CELL DISTRIBUTION WIDTH 22.4 % (11.6-16.5); WHITE BLOOD COUNT 6.4 X10^3/uL (3.6-10.0)
[2019-10-02 16:58] LABS: HEMATOCRIT 65.9 % (42.0-54.0)
[2019-10-02 17:00] LABS: ANISOCYTOSIS 2+; PLATELET MORPHOLOGY COMMENT NORMAL (NORMAL)
--- NOTE | 2019-10-02 17:08 | VAS ---
HISTORY: History of bilateral peroneal artery occlusion. Study: Bilateral lower extremity venous Doppler Comparison: Right lower extremity venous Doppler from March 13, 2019. TECHNIQUE: Real-time dynamic grayscale, color flow and complete spectral Doppler ultrasound examination of the major deep venous structures were obtained of both lower extremities. FINDINGS: Right lower extremity: Real-time examination shows no evidence of thrombus within the common femoral, superficial femoral, or popliteal veins. There is normal compressibility throughout. Color flow imaging shows normal venous blood flow within the major vessels. Doppler examination shows normal venous waveforms with appropriate respiratory variation and augmentation. Left lower extremity: Real-time examination shows no evidence of thrombus within the common femoral, superficial femoral, or popliteal veins. There is normal compressibility throughout. Color flow imaging shows normal venous blood flow within the major vessels. Doppler examination shows normal venous waveforms with appropriate respiratory variation and augmentation. IMPRESSION: 1. Normal bilateral lower extremity venous Doppler, without evidence of DVT. Reported By:
--- NOTE | 2019-10-02 17:10 | RAD ---
Chest AP portable Indication: Hypoxia Comparison: 11/24/2018 radiograph Findings: There is cardiomegaly and increased interstitial markings with monitoring leads obscuring minimal detail. Bilateral patchy lung base opacities could reflect effusions and/or atelectasis. Underlying infiltrate difficult to exclude. Impression: Cardiomegaly and possible effusions with mild increased interstitial markings and patchy basilar opacities. Developing CHF possible. Effusions possible. Underlying infection not excluded. Follow-up to resolution to exclude underlying process Reported By:
[2019-10-02] MEDS ORDERED: DUONEB 0.5 MG/3 MG NEB ONE (17:12)
[2019-10-02] MEDS ORDERED: LASIX IVP ONE ×2 (17:13→17:41)
[2019-10-02] MEDS ORDERED: DUONEB 0.5 MG/3 MG ONE (17:27)
[2019-10-02 17:40] LABS: ABG BASE EXCESS 3.3 mmol/L (-2.0-2.0); ABG HCO3 29.5 mmol/L (22-26)
--- NOTE | 2019-10-02 17:43 | CT ---
History: Hypoxia and shortness of breath Exam: CT chest without Comparison: 09/24/2019 Technique: Axial spiral images were obtained from the level above the clavicles through the adrenals without contrast. Automated dose control was utilized. Findings: The thyroid gland is unremarkable. There is mild calcified plaque throughout the aorta which is normal caliber. The pulmonary arteries are prominent centrally but unchanged . There are small lymph nodes in the AP window measuring up to 2.4 cm which are grossly unchanged . There are several pretracheal lymph nodes with the largest at the piero measuring 2 cm which is slightly more prominent . There are moderate coronary artery calcifications which are unchanged . The adrenals are normal. The lungs are mildly hyperinflated and emphysematous . There are mild linear densities scattered along the lung bases posteriorly and laterally. There are mild chronic interstitial changes throughout. No consolidation or effusion is seen. The adrenals are normal . There is mild hypertrophy of the caudate and left lobes of the liver which is unchanged . pulmonary nodule or mass is seen . There are moderate degenerative changes seen in the spine with no aggressive osseous lesion. IMPRESSION: Chronic obstructive lung changes with chronic interstitial changes throughout and mild subsegmental linear atelectasis or scarring along the lung bases which is more prominent. No obvious infiltrate or effusion is seen. Mild mediastinal adenopathy which is more prominent or unchanged and remains of uncertain etiology , suggest PET scan correlation. Prominent central pulmonary vessels suggestive of pulmonary artery hypertension which is unchanged . Moderate coronary artery calcifications which is unchanged , suggest cardiology follow-up . Mild chronic liver changes Reported By:
[2019-10-02 18:48] LABS: BASOPHILS # (AUTO) 0.1 X10^3/uL (0.0-0.1); BASOPHILS % (AUTO) 1.2 % (0.2-1.0); EOSINOPHILS # (AUTO) 0.1 x10^3/uL (0.0-0.2); EOSINOPHILS % (AUTO) 2.2 % (0.9-2.9); LYMPHOCYTES # (AUTO) 1.5 X10^3/uL (1.3-2.9); LYMPHOCYTES % (AUTO) 23.2 % (21.0-51.0); MEAN CORPUSCULAR HEMOGLOBIN 25.7 pg (27.0-34.0); MEAN CORPUSCULAR HGB CONC 32.1 g/dL (33.0-35.0); MEAN CORPUSCULAR VOLUME 80.1 fL (80.0-100.0); MEAN PLATELET VOLUME 9.3 fL (7.4-11.0); MONOCYTES # (AUTO) 0.8 x10^3/uL (0.3-0.8); MONOCYTES % (AUTO) 11.7 % (0.0-13.0); NEUTROPHILS % (AUTO) 61.7 % (42.0-75.0); PLATELET COUNT 149 X10^3/uL (150.0-450.0); RED BLOOD COUNT 8.44 X10^6/uL (4.7-6.0); RED CELL DISTRIBUTION WIDTH 22.5 % (11.6-16.5); WHITE BLOOD COUNT 6.4 X10^3/uL (3.6-10.0)
[2019-10-02 18:57] LABS: HEMATOCRIT 67.6 % (42.0-54.0); HEMOGLOBIN 21.7 g/dL (13.5-18.0)
[2019-10-02 18:58] LABS: ANISOCYTOSIS 2+; PLATELET MORPHOLOGY COMMENT NORMAL (NORMAL)
[2019-10-02] MEDS: LASIX IVP SCH (20:00)
[2019-10-02] MEDS: DUONEB 0.5 MG/3 MG NEB SCH (20:40)
[2019-10-03 06:20] LABS: BASOPHILS # (AUTO) 0.1 X10^3/uL (0.0-0.1); EOSINOPHILS # (AUTO) 0.1 x10^3/uL (0.0-0.2); EOSINOPHILS % (AUTO) 2.6 % (0.9-2.9); MEAN CORPUSCULAR HEMOGLOBIN 25.4 pg (27.0-34.0); MEAN CORPUSCULAR HGB CONC 31.3 g/dL (33.0-35.0); MEAN CORPUSCULAR VOLUME 81.1 fL (80.0-100.0); MEAN PLATELET VOLUME 9.4 fL (7.4-11.0); MONOCYTES # (AUTO) 0.8 x10^3/uL (0.3-0.8); MONOCYTES % (AUTO) 14.8 % (0.0-13.0); NEUTROPHILS # (AUTO) 3.6 x10^3/uL (2.2-4.8); NEUTROPHILS % (AUTO) 63.6 % (42.0-75.0); PLATELET COUNT 139 X10^3/uL (150.0-450.0); RED BLOOD COUNT 8.33 X10^6/uL (4.7-6.0); RED CELL DISTRIBUTION WIDTH 22.7 % (11.6-16.5); WHITE BLOOD COUNT 5.6 X10^3/uL (3.6-10.0)
[2019-10-03 06:24] LABS: BLOOD UREA NITROGEN 18 mg/dL (7-18); CALCIUM 8.9 mg/dL (8.5-10.1); CHLORIDE 102 mmol/L (98-107); CREATININE 0.99 mg/dL (0.70-1.30); SODIUM 141 mmol/L (136-145); eGFR NON BLACK RACES > 60 (>60)
[2019-10-03 06:35] LABS: HEMOGLOBIN 21.2 g/dL (13.5-18.0)
[2019-10-03 06:36] LABS: HEMATOCRIT 67.6 % (42.0-54.0)
[2019-10-03 06:54] LABS: ANISOCYTOSIS 2+; PLATELET MORPHOLOGY COMMENT NORMAL (NORMAL)
[2019-10-03] MEDS ORDERED: MICRO K EXTEN CAP 10 MEQ PO SCH (09:00)
[2019-10-03] MEDS ORDERED: ASPIRIN 81 MG CHEWTAB PO SCH (09:00)
[2019-10-03] MEDS ORDERED: NORVASC TAB 5 MG PO SCH (09:00)
[2019-10-03] MEDS: DUONEB 0.5 MG/3 MG NEB SCH ×3 (09:20→17:00)
[2019-10-03] MEDS ORDERED: ZOSYN VIAL 3.375 GRAMS 3.375 G in NS 100 ML IV + SPIKE MINIBAG* 100 ML IV ONE (09:26)
[2019-10-03] MEDS ORDERED: TORADOL 15 MG VIAL IVP ONE (09:28)
[2019-10-03] MEDS ORDERED: LIBRIUM PO PRN (09:28)
[2019-10-03] MEDS ORDERED: PULMICORT NEB TX 0.5 MG NEB SCH (09:30)
--- NOTE | 2019-10-03 09:35 | DR.H&P ---
H&P - History & Physical for Day of: H&P Date: 10/02/19 - Chief Complaint Chief Complaint: lower leg redness, pain, swelling and draining fluid, increased SOB - History of Present Illness History of Present Illness: 59 WM ER ADMISSION WITH HYPOXIA, COPD EXACERBATION, LOWER EXTREMITY CELLULITIS. PT HAS PMH OF CHRONIC RESP FAILURE AND PULMONARY HYPERTENSION. PT WAS RECENTLY STARTED ON NORVASC FOR PH AND BACTRIM FOR LOWER EXTREMITY CELLULITIS. PT HAD CTA LE REVEALING PAD, PT ON ASPIRIN AT HOME. PT CO INCREASED SOB AND INCREASED SWELLING TO BOTH LOWER LEGS. PT DOES NOT HAVE O2 OR BIPAP AT HOME. PT CO CHEST PAIN WITH EXERTION. PT STATES HE HAS BEEN CONFINED TO HOME, NOT WORKING BECAUSE SOB MUCH WORSE. PT ASSESSED IN ER, ADMITTED TO ICU FOR TREATMENT OF ACUTE ILLNESS. - Past Medical History Past Medical History: Hypertension, COPD, CHF - Past Surgical History Surgical History: Ortho Surgery - Family History Family Medical History: Diabetes Mellitus, Cancer, Coronary Artery Disease, Heart Failure, Hypertension - Social History Does patient currently use any type of tobacco product: Yes Have you used tobacco products in the last 12 months: Yes Type of Tobacco Use: Cigarettes How many years tobacco product used: 30 Does any household member use tobacco: No Alcohol Use: Occasionally Drug Use: None Risks, benefits, and alternatives of opioids discussed: Yes Prescription drug monitoring program results: PDMP reviewed and no concerns identified - Medications Home Medications: No Known Drug Allergies Allergy (Verified 10/02/19 16:56) CONTINUE taking the following medications amlodipine [Norvasc] 5 mg PO DAILY 10/02/19 [History] furosemide [Lasix] 40 mg PO DAILY 10/02/19 [History] potassium chloride 20 meq PO DAILY 10/02/19 [History] - Review of Systems Constitutional: Weakness Eyes: No Symptoms Reported Respiratory: No Symptoms Reported, Shortness of Breath, SOB with Excertion Cardiovascular: Chest Pain, Edema, Light Headedness Gastrointestinal: No Symptoms Reported Genitourinary: No Symptoms Reported Musculoskeletal: Back Pain, Leg Pain Skin: Wound (REDNESS AND WEEPING LOWER EXTREMITIES) Neurological: Weakness - Physical Exam Vital Signs: Temperature 98.1 F Pulse Rate 95 Respiratory Rate 22 Blood Pressure [Left Arm] 147/69 Blood Pressure 135/69 O2 Sat by Pulse Oximetry 86 Oriented: Normal Eyes: Normal Ear: Normal Nose: Normal Throat: Dry Respiratory: Diminished Throughout Cardiovascular: Edema : Normal Auscultation: Bowel Sounds: Normal Palpation: Normal Tenderness: Normal Skin: Red, Tender, Wound (BILATERAL LEGS) Musculoskeletal: Right, Left, Back:Lumbar, Tender Psychiatric: Anxiety Mood Description: Anxious - Assessment/Plan (1) Acute and chronic respiratory failure with hypoxia Status: Acute Plan: ADMIT ICU. SUPPLEMENTAL O2, PRN BIPAP. ABG ON ADMISSION, REPEAT AM. CT CHEST IN ER, REPEAT AM CTA WITH CONTRAST OF CHEST. STRICT I&OS, IV LASIX, RESP THERAPY. SPUTUM AND BLOOD CULTURES, IV ATBX THERAPY, BP CONTROL, CONTINUOUS CARDIAC MONITORING, AM FLP, LOVENOX, ASPIRIN,STATIN, ARB THERAPY (2) COPD exacerbation Status: Acute (3) Chronic respiratory failure with hypercapnia Status: Acute (4) Bilateral lower leg cellulitis Status: Acute (5) Pulmonary hypertension Status: Acute (6) CHF (congestive heart failure) Status: Acute (7) PAD (peripheral artery disease) Status: Acute - Allergies Allergies/Adverse Reactions: Allergies Allergy/AdvReac Type Severity Reaction Status Date / Time No Known Drug Allergies Allergy Verified 10/02/19 16:56
[2019-10-03] MEDS: LASIX IVP SCH ×2 (09:42→20:16)
[2019-10-03] MEDS ORDERED: LOVENOX INJ 40 MG SYR SC SCH (10:00)
[2019-10-03] MEDS ORDERED: COZAAR PO SCH (10:00)
[2019-10-03] MEDS ORDERED: LEVAQUIN PREMIX IV 500 MG 500 MG/100 ML BAG IV SCH (10:00)
[2019-10-03 10:13] LABS: CHOL/HDL RATIO 3.7 (0.0-5.0)
[2019-10-03] MEDS: SOLU-Medrol 125 MG VIAL IVP SCH ×2 (11:28→14:59)
[2019-10-03] MEDS: NS 1000 ML 1,000 ML IV SCH ×2 (11:29→11:44)
[2019-10-03] MEDS ORDERED: NS 100 ML IV 100 ML IV ONE (11:32)
--- NOTE | 2019-10-03 13:06 | CT ---
HISTORY: Hypoxia Study: CTA chest with contrast for pulmonary embolus Comparison: CT chest without contrast 10/02/2019 Technique: Axial post-contrast images with coronal and sagittal reformats. Three-dimensional maximum intensity projection images were obtained and evaluated. Dose reduction procedures were used with mA/kv adjusted for body size. Findings: There is no evidence for acute pulmonary thromboembolic disease in the main pulmonary artery, right and left main pulmonary arteries, lobar branches and proximal-most segmental branches. Evaluation more distally is not possible due to less than optimal bolus timing. Examination of the mediastinum demonstrated no evidence for mediastinal masses. There is enlarged mediastinal node present in the retrocaval pretracheal area. This could be reactive, inflammatory, or neoplastic in origin. PET-CT may be indicated for further evaluation. No definite hilar adenopathy is identified. No aortic abnormality is identified. No pleural effusions are identified. No chest wall or axillary abnormality is identified. Those portions of the upper abdominal organs visualized were within normal limits. Examination of the lung etienne demonstrated hyperinflation to be present. Changes of centrilobular emphysema are present. No nodules, masses, alveolar infiltrates, areas of consolidation, peribronchial thickening, or bronchiectasis is identified. IMPRESSION: No evidence for acute pulmonary thromboembolic disease in the main pulmonary arteries, right and left main pulmonary arteries, lobar branches and proximal-most segmental branches. Evaluation more peripherally is not possible due to less than optimal bolus timing Mediastinal adenopathy unchanged. PET-CT should be considered for further evaluation Hyperinflation with emphysematous lung changes present. Reported By:
[2019-10-03 14:00] LABS: BILIRUBIN,URINE NEGATIVE (NEGATIVE); BLOOD/HEMOGLOBIN,URINE NEGATIVE (NEGATIVE); GLUCOSE, URINE NEGATIVE (NEGATIVE); KETONES,URINE NEGATIVE (NEGATIVE); LEUKOCYTE ESTERASE ,URINE NEGATIVE (NEGATIVE); NITRITES,URINE NEGATIVE (NEGATIVE); PROTEIN,URINE 1+ (NEGATIVE); UROBILINOGEN,URINE NORMAL (NORMAL)
[2019-10-03 14:07] LABS: APPEARANCE,URINE CLEAR (CLEAR); COLOR,URINE YELLOW (YELLOW); RBC,URINE NONE SEEN /HPF (0-3)
[2019-10-03 14:08] LABS: BACTERIA,URINE NEGATIVE /HPF (NEGATIVE); MUCUS,URINE FEW /HPF (NEGATIVE); SQUAMOUS EPITHELIAL CELL,UR NEGATIVE /HPF (NEGATIVE)
[2019-10-03 18:29] LABS: ALANINE AMINOTRANSFERASE 20 Units/L (12-78); ALBUMIN 3.6 g/dL (3.4-5.0); ALKALINE PHOSPHATASE 91 Units/L (46-116); ASPARTATE AMINO TRANSFERASE 18 Units/L (15-37); BLOOD UREA NITROGEN 21 mg/dL (7-18); CALCIUM 9.1 mg/dL (8.5-10.1); CARBON DIOXIDE 33.3 mmol/L (21-32); CHLORIDE 97 mmol/L (98-107); COR NA(FOR HYPERGLY) 138 mmol/L (136-145); CREATININE 1.06 mg/dL (0.70-1.30); SODIUM 136 mmol/L (136-145); TOTAL PROTEIN 8.4 g/dL (6.4-8.2); eGFR NON BLACK RACES > 60 (>60)
[2019-10-03] MEDS ORDERED: CRESTOR TAB 10 MG PO SCH (21:00)
[2019-10-03 23:35] VITALS: BP 138/65
== END 2019-10-03 20:55 | disposition short-term general hospital (02) | DRG 189 ==
LOC: ER 15:37 → ICU 18:16
PROVIDERS: ADMIT Internal Medicine; ATTEND Internal Medicine
CPT/HCPCS: 36415; 36600; 71010; 71045; 71250; 71275; 80048; 80053; 80061; 81001; 82803; 83880; 84484; 85025; 85610; 87040; 93005; 93306; 93970; 94640; 96365; 96374; 99285; A4222; A4618; J1650; J1885; J1940; J1956; J2543; J2930; J7030; J7050; J7620; J7626

== ENCOUNTER 2020-09-23 08:11 | Inpatient (IN) ==
[2020-09-23] MEDS ORDERED: PERCOCET TAB 5/325 MG PO PRN (08:27)
[2020-09-23] MEDS ORDERED: PHARMACY CONSULT - VANCOMYCIN XX SCH (09:00)
[2020-09-23] MEDS: LOVENOX INJ 40 MG SYR SC SCH ×2 (10:18→10:38)
--- NOTE | 2020-09-23 10:18 | RAD ---
HISTORYShortness of breathSTUDYChest AP portableCOMPARISONNoneFINDINGSThe heart is enlarged. No congestive heart failure is noted. No acute alveolar infiltrates are identified. Diffuse interstitial lung changes are present. No pleural effusions are identified. Bony thorax is unremarkable.IMPRESSIONCardiomegaly without congestive heart failureDiffuse interstitial lung changes of uncertain durationNo definite acute alveolar infiltratesElectronically signed by: MANISH GREGORY (Sep 23, 2020 10:17:14)
[2020-09-23] MEDS: NEURONTIN CAP 300 MG PO SCH ×3 (10:20→21:04)
[2020-09-23 12:10] LABS: ALANINE AMINOTRANSFERASE 22 Units/L (12-78); ALBUMIN 3.1 g/dL (3.4-5.0); ALKALINE PHOSPHATASE 77 Units/L (46-116); ASPARTATE AMINO TRANSFERASE 20 Units/L (15-37); BASOPHILS % (AUTO) 0.7 % (0.2-1.0); BLOOD UREA NITROGEN 30 mg/dL (7-18); CALCIUM 9.5 mg/dL (8.5-10.1); CARBON DIOXIDE 31.7 mmol/L (21-32); CHLORIDE 100 mmol/L (98-107); COR CA(FOR HYPOALB) 10.2 mg/dL (8.5-10.1); EOSINOPHILS # (AUTO) 0.1 x10^3/uL (0.0-0.2); EOSINOPHILS % (AUTO) 1.7 % (0.9-2.9); LYMPHOCYTES % (AUTO) 16.3 % (21.0-51.0); MEAN CORPUSCULAR HEMOGLOBIN 26.6 pg (27.0-34.0); MEAN CORPUSCULAR HGB CONC 31.8 g/dL (33.0-35.0); MEAN CORPUSCULAR VOLUME 83.6 fL (80.0-100.0); MEAN PLATELET VOLUME 8.9 fL (7.4-11.0); MONOCYTES # (AUTO) 0.7 x10^3/uL (0.3-0.8); NEUTROPHILS # (AUTO) 4.5 x10^3/uL (2.2-4.8); NEUTROPHILS % (AUTO) 70.3 % (42.0-75.0); PLATELET COUNT 194 X10^3/uL (150.0-450.0); RED BLOOD COUNT 8.29 X10^6/uL (4.7-6.0); RED CELL DISTRIBUTION WIDTH 23.2 % (11.6-16.5); SODIUM 137 mmol/L (136-145); TOTAL PROTEIN 7.9 g/dL (6.4-8.2); WHITE BLOOD COUNT 6.4 X10^3/uL (3.6-10.0); eGFR NON BLACK RACES > 60 (>60)
[2020-09-23 12:33] LABS: HEMATOCRIT 69.3 % (42.0-54.0)
[2020-09-23 12:36] LABS: ANISOCYTOSIS 2+; PLATELET MORPHOLOGY COMMENT NORMAL (NORMAL)
[2020-09-23 12:56] LABS: ERYTHROCYTE SEDIMENTATION RATE 1 MM/HOUR (0-15)
[2020-09-23] MEDS ORDERED: NS 250 ML IV 250 ML IV ONE (13:43)
[2020-09-23] MEDS: VANCOMYCIN HCL 1 G in D5W 250 ML IV 250 ML IV SCH ×2 (14:00→21:04)
[2020-09-23] MEDS: NS 1000 ML 1,000 ML IV SCH (14:10)
[2020-09-23 15:05] LABS: FREE T4 (FREE THYROXINE) 1.36 ng/dL (0.76-1.46); TSH (3RD GENERATION) 1.581 uIU/mL (0.358-3.74)
[2020-09-23] MEDS: LASIX IVP SCH (17:15)
--- NOTE | 2020-09-23 17:53 | DR.H&P ---
H&P - History & Physical for Day of: H&P Date: 09/23/20 - Chief Complaint Chief Complaint: PAIN REDNESS AND SWELLING TO RLE, OPEN WOUNDS TO RLE - History of Present Illness History of Present Illness: PT IS 60 WM ADMITTED WITH RLE CELLULITIS AND OPEN WOUNDS WEEPING. PT CO INCREASED PAIN TO RLE. PT WAS SEEN IN ER OVER A WEEK AGO AND HAD NEGATIVE US, STARTED ON BACTRIM WITHOUT IMPROVEMENT. PT HAS PMH OF COPD WITH HYPERCAPNEA, DIASTOLIC HEART DISEASE, HTN, POLYCYTHEMIA, RESP FAILURE AND OA. PT ADMITTED FOR TREATMENT OF ACUTE ILLNESS. - Past Medical History Past Medical History: Hypertension, COPD, CHF - Past Surgical History Surgical History: Ortho Surgery - Family History Family Medical History: Diabetes Mellitus, Cancer, Coronary Artery Disease, Heart Failure, Hypertension - Social History Does patient currently use any type of tobacco product: No Have you used tobacco products in the last 12 months: No Type of Tobacco Use: Cigarettes How many years tobacco product used: 35 Does any household member use tobacco: No Alcohol Use: Occasionally - Medications Home Medications: No Known Drug Allergies Allergy (Verified 09/13/20 13:27) - Review of Systems Constitutional: Fever, Chills Eyes: No Symptoms Reported ENT: No Symptoms Reported Respiratory: SOB with Excertion Cardiovascular: No Symptoms Reported, Edema Gastrointestinal: No Symptoms Reported Genitourinary: No Symptoms Reported Musculoskeletal: Leg Pain Skin: Wound Neurological: No Symptoms Reported - Physical Exam Vital Signs: Temperature 97.8 F Pulse Rate [Left Brachial] 82 Pulse Rate 75 Respiratory Rate 20 Blood Pressure [Left Arm] 146/61 Blood Pressure 146/77 O2 Sat by Pulse Oximetry 87 Oriented: Normal Eyes: Normal Ear: Normal Nose: Normal Throat: Normal Respiratory: Diminished Throughout Cardiovascular: Normal, Edema : Normal Auscultation: Bowel Sounds: Normal Palpation: Normal Tenderness: Normal Skin: Red, Tender, Hot, Wound (RLE) Musculoskeletal: Right, Knee, Leg, Ankle, Back:Lumbar Psychiatric: Anxiety Affect: Anxious Speech Pattern: Clear, Appropriate - Assessment/Plan (1) Cellulitis of right leg Status: Acute Plan: ADMIT, BC AND WOUND CULTURES ON ADMISSION. IV VANCOMYCIN, PAIN CONTROL. CXR ON ADMISSION, BP MONITORING. LOVENOX PROPHALAXIS (2) Chronic respiratory failure with hypercapnia Status: Acute (3) Erythrocyte abnormality Status: Acute (4) CHF (congestive heart failure) Status: Acute (5) PAD (peripheral artery disease) Status: Acute - Allergies Allergies/Adverse Reactions: Allergies Allergy/AdvReac Type Severity Reaction Status Date / Time No Known Drug Allergies Allergy Verified 09/13/20 13:27
[2020-09-23] MEDS: VASOTEC TAB 5 MG PO SCH (21:04)
[2020-09-24 04:54] LABS: EOSINOPHILS # (AUTO) 0.2 x10^3/uL (0.0-0.2); LYMPHOCYTES # (AUTO) 1.1 X10^3/uL (1.3-2.9); MEAN CORPUSCULAR HGB CONC 31.1 g/dL (33.0-35.0)
[2020-09-24 05:10] LABS: BASOPHILS % (AUTO) 0.7 % (0.2-1.0); EOSINOPHILS % (AUTO) 2.9 % (0.9-2.9); LYMPHOCYTES % (AUTO) 17.2 % (21.0-51.0); MEAN CORPUSCULAR HEMOGLOBIN 26.1 pg (27.0-34.0); MEAN CORPUSCULAR VOLUME 83.8 fL (80.0-100.0); MEAN PLATELET VOLUME 9.2 fL (7.4-11.0); MONOCYTES # (AUTO) 0.7 x10^3/uL (0.3-0.8); NEUTROPHILS # (AUTO) 4.5 x10^3/uL (2.2-4.8); NEUTROPHILS % (AUTO) 68.2 % (42.0-75.0); PLATELET COUNT 179 X10^3/uL (150.0-450.0); RED CELL DISTRIBUTION WIDTH 23.1 % (11.6-16.5); WHITE BLOOD COUNT 6.6 X10^3/uL (3.6-10.0)
[2020-09-24 05:16] LABS: HEMATOCRIT 70.4 % (42.0-54.0); HEMOGLOBIN 21.9 g/dL (13.5-18.0)
[2020-09-24 05:17] LABS: ALANINE AMINOTRANSFERASE 14 Units/L (12-78); ALBUMIN 2.9 g/dL (3.4-5.0); ALKALINE PHOSPHATASE 70 Units/L (46-116); ASPARTATE AMINO TRANSFERASE 22 Units/L (15-37); BLOOD UREA NITROGEN 24 mg/dL (7-18); CALCIUM 9.1 mg/dL (8.5-10.1); CARBON DIOXIDE 30.7 mmol/L (21-32); CHLORIDE 100 mmol/L (98-107); CHOL/HDL RATIO 3.8 (0.0-5.0); CHOLESTEROL 147 mg/dL (0-200); CREATININE 1.04 mg/dL (0.70-1.30); HDL CHOLESTEROL 39 mg/dL (40-60); SODIUM 136 mmol/L (136-145); TOTAL PROTEIN 7.6 g/dL (6.4-8.2); TRIGLYCERIDES 121 mg/dL (0-150); URIC ACID 9.8 mg/dL (3.5-7.2); eGFR NON BLACK RACES > 60 (>60)
[2020-09-24] MEDS: NS 1000 ML 1,000 ML IV SCH ×2 (05:19→17:50)
[2020-09-24] MEDS: VANCOMYCIN HCL 1 G in D5W 250 ML IV 250 ML IV SCH ×3 (05:19→21:32)
[2020-09-24] MEDS: NEURONTIN CAP 300 MG PO SCH ×3 (05:19→21:32)
[2020-09-24 05:28] LABS: TOTAL PSA 0.16 ng/mL (0.13-4.0)
[2020-09-24 05:46] LABS: PLATELET MORPHOLOGY COMMENT NORMAL (NORMAL)
[2020-09-24 05:47] LABS: ANISOCYTOSIS 2+
[2020-09-24 05:56] LABS: RHEUMATOID FACTOR NEGATIVE (NEGATIVE)
[2020-09-24 08:01] VITALS: BMI 47.7
[2020-09-24] MEDS: LASIX IVP SCH ×2 (09:11→17:44)
[2020-09-24] MEDS: VASOTEC TAB 5 MG PO SCH ×2 (09:11→20:53)
[2020-09-24] MEDS: LOVENOX INJ 40 MG SYR SC SCH (09:17)
[2020-09-24] MEDS ORDERED: ROBITUSSIN DM PO PRN (09:47)
[2020-09-24] MEDS: ASPIRIN PO SCH (10:30)
--- NOTE | 2020-09-24 12:19 | CT ---
HISTORYBIL LEG PAIN and edema, cellulitis right legSTUDYCTA abdomen, pelvis WITH RUNOFF of bilateral lower extremitiesCOMPARISONNoneTECHNIQUEMultiple axial images of the abdomen, pelvis, and bilateral lower e xtremities were obtained from the lung bases to the plantar surface of the feet prior to and followi ng the administration of IV contrast. 3D reconstructions were performed utilizing radial maximum i ntensity projection imaging. Dose reduction techniques including Automated Exposure Control (AEC) an d adjustment of mA and kV were utilized.FINDINGSOnly lower abdomen is included on the study. Visualiz ed portions of the kidneys appear normal. Ill diffuse excludes portions of the anterior abdomen. No b owel dilation is seen. Bladder is not distended. No free pelvic fluid is seen. No inguinal hernia is seen. Prostate gland is normal in size. Mildly prominent groin and pelvic lymph nodes are seen.Abdomi nal aorta: Aorta is normal in size with mild atherosclerotic calcifications. Single renal arteries ar e seen bilaterally with little atherosclerotic calcification.Common iliac arteries: Mild calcified p laque causes no significant stenosis.External iliac arteries: No stenoses are seen.Right lower extre mity: Minimal calcified plaque in the right CROWNING INSPECTOR causes less than 20 percent stenosis. Mild scattered plaque in the right SFA causes no significant stenosis. Similar mild stenoses are seen in the right p opliteal artery. Mild calcified plaque is seen in the proximal posterior tibial and peroneal veins. M ore prominent plaque is seen in the origin of the right CIPRIANO with approximately 60-70 percent stenosis . Three-vessel runoff is seen at the ankle. There is edema in the right lower leg that could be bland edema or cellulitis. No suggestion of an abscess is seen.Left lower extremity: Mild calcified plaque in the left CROWNING INSPECTOR, SFA, and popliteal artery causes no significant stenosis. There is greater calcifie d plaque in the left tibioperoneal trunk that likely causes 70-80 percent narrowing. Mild plaque is s een in the proximal runoff but all 3 vessels are seen enhancing at the ankle. Minimal subcutaneous ed jeff is suspected in the left lower leg.IMPRESSIONScattered atherosclerotic plaque is seen in the lowe r extremities. Possible hemodynamically significant stenosis is seen in the origin of the right CIPRIANO a nd in the left tibioperoneal trunk.Subcutaneous edema in the right lower extremity is greater than in the left lower extremity. This could be bland edema or cellulitis. No focal fluid collection is seen .Mildly prominent groin and pelvic lymph nodes are seen which are probably reactive.Electronically si gned by: Giovanni Siddiqui (Sep 24, 2020 12:17:29)
[2020-09-24] MEDS ORDERED: PHARMACY COMMENT IV NR (13:30)
[2020-09-24 14:25] LABS: CREATININE 1.11 mg/dL (0.70-1.30); VANCOMYCIN,TROUGH 12.6 ug/mL (15-20)
[2020-09-24] MEDS: PLAVIX PO SCH (14:47)
[2020-09-24] MEDS: DUONEB 0.5 MG/3 MG (3 mL) NEB SCH ×3 (16:20→20:20)
[2020-09-25] MEDS: DUONEB 0.5 MG/3 MG (3 mL) NEB SCH ×4 (00:38→14:04)
[2020-09-25] MEDS: VANCOMYCIN HCL 1 G in D5W 250 ML IV 250 ML IV SCH (05:40)
[2020-09-25] MEDS: NEURONTIN CAP 300 MG PO SCH (05:40)
[2020-09-25 06:19] LABS: BASOPHILS % (AUTO) 0.6 % (0.2-1.0); EOSINOPHILS # (AUTO) 0.2 x10^3/uL (0.0-0.2); EOSINOPHILS % (AUTO) 2.9 % (0.9-2.9); LYMPHOCYTES # (AUTO) 1.2 X10^3/uL (1.3-2.9); LYMPHOCYTES % (AUTO) 19.8 % (21.0-51.0); MEAN CORPUSCULAR HEMOGLOBIN 25.9 pg (27.0-34.0); MEAN CORPUSCULAR HGB CONC 31.1 g/dL (33.0-35.0); MEAN CORPUSCULAR VOLUME 83.4 fL (80.0-100.0); MEAN PLATELET VOLUME 8.5 fL (7.4-11.0); MONOCYTES # (AUTO) 0.7 x10^3/uL (0.3-0.8); MONOCYTES % (AUTO) 10.5 % (0.0-13.0); NEUTROPHILS # (AUTO) 4.1 x10^3/uL (2.2-4.8); NEUTROPHILS % (AUTO) 66.2 % (42.0-75.0); PLATELET COUNT 180 X10^3/uL (150.0-450.0); RED BLOOD COUNT 7.86 X10^6/uL (4.7-6.0); WHITE BLOOD COUNT 6.2 X10^3/uL (3.6-10.0)
[2020-09-25 06:32] LABS: ALANINE AMINOTRANSFERASE 20 Units/L (12-78); ALBUMIN 2.7 g/dL (3.4-5.0); ALKALINE PHOSPHATASE 61 Units/L (46-116); ASPARTATE AMINO TRANSFERASE 18 Units/L (15-37); BLOOD UREA NITROGEN 25 mg/dL (7-18); CALCIUM 8.9 mg/dL (8.5-10.1); CARBON DIOXIDE 29.2 mmol/L (21-32); CHLORIDE 102 mmol/L (98-107); COR CA(FOR HYPOALB) 9.9 mg/dL (8.5-10.1); SODIUM 137 mmol/L (136-145); TOTAL PROTEIN 6.9 g/dL (6.4-8.2); eGFR NON BLACK RACES > 60 (>60)
[2020-09-25 07:06] LABS: HEMOGLOBIN 20.4 g/dL (13.5-18.0)
[2020-09-25 07:07] LABS: HEMATOCRIT 65.6 % (42.0-54.0)
[2020-09-25 07:08] LABS: ANISOCYTOSIS 2+; PLATELET MORPHOLOGY COMMENT NORMAL (NORMAL)
[2020-09-25] MEDS: ASPIRIN PO SCH (09:05)
[2020-09-25] MEDS: LASIX IVP SCH (09:06)
[2020-09-25] MEDS: VASOTEC TAB 5 MG PO SCH (09:14)
[2020-09-25] MEDS: NS 1000 ML 1,000 ML IV SCH (09:15)
[2020-09-25] MEDS: PLAVIX PO SCH (09:15)
[2020-09-25 12:18] VITALS: BP 116/66
[2020-09-25] MEDS ORDERED: SILVADENE TOP SCH (13:15)
[2020-09-25] MEDS ORDERED: HYDROGEN PEROXIDE 3% ONE (13:48)
[2020-09-25] MEDS ORDERED: NS IRRIGATION* 500 ML IR ONE (13:49)
[2020-09-26 06:25] LABS: ANTI-NUCLEAR ANTIBODY TEST None Detected (None Detected)
== END 2020-09-25 14:10 | disposition home or self-care (01) | DRG 603 ==
LOC: MED/SURG 08:51
PROVIDERS: ADMIT Internal Medicine; ATTEND Internal Medicine
DX: J44.9 Chronic obstructive pulmonary disease, unspecified; J96.12 Chronic respiratory failure with hypercapnia; L03.115 Cellulitis of right lower limb; E66.01 Morbid (severe) obesity due to excess calories; I50.9 Heart failure, unspecified; I73.9 Peripheral vascular disease, unspecified; I83.018 Varicose veins of right lower extremity with ulcer other part of lower leg; I10 Essential (primary) hypertension; E87.8 Other disorders of electrolyte and fluid balance, not elsewhere classified

== ENCOUNTER 2021-10-07 09:56 | Inpatient (IN) ==
[2021-10-07 10:05] VITALS: BMI 52.6
[2021-10-07 10:06] LABS: ABG ALLEN TEST POS; ABG HCO3 28.2 mmol/L (22-26)
[2021-10-07] MEDS ORDERED: LASIX ONE (10:08)
[2021-10-07] MEDS ORDERED: LASIX IVP ONE (10:08)
--- NOTE | 2021-10-07 10:11 | DR.SOBA ---
HPI Time Seen Time Seen by Provider: 10/07/21 10:04 Primary Care Physician Primary Care Physician: JAVIER BOB DR, [place] HPI Comment HPI Comment: A 61 y/o male sent over from Dr. Jay's office due to finding of Oxygen saturation about 60%. Normally, he states that his O2 sats. are in the 80s %. He does have a hx. of CHF, COPD, OSAS, pulmonary HTN. He has oxygen for home use prn. He has had 2 Pfizer vaccines for COVID-19. Complaints Chief Complaint:: PT TO JAVIER BOB'S OFFICE THIS AM FOR FLU , SENT PT OVER FOR EVAL DUE TO SOB, AND O SATS IN THE 60'S PT STATES HIS SATS ARE USUALLY IN THE 80'S PT HAS 02 AT HOME BUT, NOT PORTABLE PT STATES " I WEAR IT SOME TIMES " UPON ARRIVAL NO 02 SATS PICKED UP NRB APPLIED AT 15 LPM , PTS SATS ARE 86% THAN UP TO 96%, PT NOTED TO BE CYANOTIC TO HIS FACE AND HANDS ,BR Self Treatment fo Chief Complaint: PT DENIES PAIN, PT HAS HX OF COPD , EMPYSEMA, CHF PT IS ON LASIX PO, SWELLING NOTED TO PTS LOWER EXT, LUNGS CLEAR BILATERALLY ,BR COVID-19 Coronavirus risk:travel/contact w/high risk person: No Has patient experienced Coronavirus symptoms: Yes Coronavirus symptoms experienced: Shortness of Breath Reviewed Nurses Notes Reviewed: Yes Source History Provided: Patient and Other (Physician) Mode of Arrival Mode of Arrival: Ambulatory Timing Onset of Chief Complaint: 10/07/21 Context Onset:: At Rest PE Risk Factors:: None History of:: COPD and CHF Currently on:: Inhaled Bronchodilators Prehospital Care:: Furosemide Modifying Factors Worsens:: Exertion Improves:: Rest Associated Signs and Symptoms Associated Signs and Symptoms: Cough PMH PMH Past Medical History: Yes Past Medical History: CHF, COPD and Hypertension Past Medical History Comment: EMPYSEMA, Past Surgical History: Yes Surgical History: Ortho Surgery Past Surgical History Comment: LEFT HAND ,BR Family History History of Family Medical Conditions: No Family Medical History: Diabetes Mellitus, Cancer, Coronary Artery Disease, Heart Failure and Hypertension Social History Does patient currently use any type of tobacco product: No Have you used tobacco products in the last 12 months: No Type of Tobacco Use: None Does any household member use tobacco: No Alcohol Use: None Do you use any recreational Drugs:: No Lives With: Family Lives Where: Home Travel Risk Coronavirus risk:travel/contact w/high risk person: No Has patient experienced Coronavirus symptoms: Yes Coronavirus symptoms experienced: Shortness of Breath Infectious screening In the last 2 months have you had wt loss of >10#?: NO Have you traveled outside the country in the last 6 months?: No Isolation: Respiratory ROS Review of Systems Constitutional: No Symptoms Reported Eyes: No Symptoms Reported ENTM: No Symptoms Reported Respiratoy: Productive Cough and Short of Breath Cardiovascular: No Symptoms Reported Gastrointestinal/Abdominal: No Symptoms Reported Genitourinary: No Symptoms Reported Neurological: No Symptoms Reported Musculoskeletal: No Symptoms Reported Integumentary: No Symptoms Reported Hematologic/Lymphatic: No Symptoms Reported Endocrine: No Symptoms Reported Psychiatric: No Symptoms Reported PE Vital Signs Vitals: Temperature 97.4 F Pulse Rate 97 Respiratory Rate 15 Blood Pressure [Right Arm] 116/66 Blood Pressure 160/97 O2 Sat by Pulse Oximetry 86 General Limitations: No Limitations General Appearance: Alert, In No Apparent Distress and Obese Head Head Exam: Normal Inspection, Atraumatic and Normocephalic Eyes Eye exam: Normal Appearance and EOMI ENT ENT Exam: Normal Exam, Normal Oropharynx, Normal External Ear Exam and Mucous Membranes Moist Neck Neck Exam: Normal Inspection, Full ROM and Trachea Midline Chest Chest Inspection: Normal Inspection and Symmetric Chest Wall Rise Respiratory Respiratory Exam: Normal Lung Sounds Bilat Cardiovascular Cardiovascular Exam: Regular Rate, Normal Rhythm, Normal Heart Sounds, +S1 and +S2 Abdominal Exam Abdominal Exam: Normal Inspection, Normal Bowel Sounds, Soft and Other (Obese) Extremities Extremities Exam: Normal Inspection, Full ROM and Edema (3+ b/l) Back Back Exam: Normal Inspection and Full ROM Neurologic Neurological Exam: Alert and Oriented X3 Psychiatric Psychiatric Exam: Normal Affect and Normal Mood Skin Skin Exam: Intact MDM Differential Diagnosis Differential Diagnosis: CHF, COPD, Mycardial Infarction, Pneumonia, Pulmonary embolism and Respiratory Failure COURSE Reevaluation 1st: Improved (He's put out 1 L of urine into the urinal at bedside. ) Education/Counseling Education/Counseling: Patient, Education and Counseling Educated On: Treatment, Diagnosis, Prognosis and Needs for Follow Up ROR Labs Reviewed Laboratory Results Reviewed?: Yes Result Diagrams: 10/07/21 10:00 10/07/21 10:00 Laboratory: WBC 6.6 X10^3/uL (3.6-10.0) 10/07/21 10:00 RBC 8.35 X10^6/uL (4.7-6.0) H 10/07/21 10:00 Hgb 19.8 g/dL (13.5-18.0) H* 10/07/21 10:00 Hct 64.9 % (42.0-54.0) H* 10/07/21 10:00 MCV 77.7 fL (80.0-100.0) L 10/07/21 10:00 MCH 23.7 pg (27.0-34.0) L 10/07/21 10:00 MCHC 30.4 g/dL (33.0-35.0) L 10/07/21 10:00 RDW 23.1 % (11.6-16.5) H 10/07/21 10:00 Plt Count 159 X10^3/uL (150.0-450.0) 10/07/21 10:00 Plt Count Comment Adequate (ADEQUATE) 10/07/21 10:00 MPV 9.2 fL (7.4-11.0) 10/07/21 10:00 Neut % (Auto) 67.8 % (42.0-75.0) 10/07/21 10:00 Lymph % (Auto) 18.2 % (21.0-51.0) L 10/07/21 10:00 [place] % (Auto) 12.1 % (0.0-13.0) 10/07/21 10:00 Eos % (Auto) 1.2 % (0.9-2.9) 10/07/21 10:00 Baso % (Auto) 0.7 % (0.2-1.0) 10/07/21 10:00 Neut # (Auto) 4.5 x10^3/uL (2.2-4.8) 10/07/21 10:00 Lymph # (Auto) 1.2 X10^3/uL (1.3-2.9) L 10/07/21 10:00 [place] # (Auto) 0.8 x10^3/uL (0.3-0.8) 10/07/21 10:00 Eos # (Auto) 0.1 x10^3/uL (0.0-0.2) 10/07/21 10:00 Baso # (Auto) 0.0 X10^3/uL (0.0-0.1) 10/07/21 10:00 Absolute Nucleated RBC 0.5 /100WBC 10/07/21 10:00 Plt Morphology Comment Normal (NORMAL) 10/07/21 10:00 RBC Morphology Abnormal (NORMAL) 10/07/21 10:00 Anisocytosis 2+ A 10/07/21 10:00 D-Dimer 0.44 ug/ml (0.0-0.57) 10/07/21 10:00 Sample Site Rrad 10/07/21 09:55 ABG pH 7.360 (7.35-7.45) 10/07/21 09:55 ABG pCO2 50.0 mmHg (35.0-45.0) H 10/07/21 09:55 ABG pO2 93.0 mmHg (80.0-100.0) 10/07/21 09:55 ABG HCO3 28.2 mmol/L (22-26) H 10/07/21 09:55 ABG O2 Saturation 97.0 % (90-100) 10/07/21 09:55 ABG Base Excess 2.0 mmol/L (-2.0-2.0) 10/07/21 09:55 Alpesh Test Pos 10/07/21 09:55 A-a Gradient 558.0 mmHg 10/07/21 09:55 FiO2 100.0 10/07/21 09:55 Blood Gas Comments Pt song well elj 10/07/21 09:55 Sodium 135 mmol/L (136-145) L 10/07/21 10:00 Corrected Sodium 135 mmol/L (136-145) L 10/07/21 10:00 Potassium 5.7 mmol/L (3.5-5.1) H 10/07/21 10:00 Chloride 99 mmol/L (98-107) 10/07/21 10:00 Carbon Dioxide 31.4 mmol/L (21-32) 10/07/21 10:00 BUN 23 mg/dL (7-18) H 10/07/21 10:00 Creatinine 0.90 mg/dL (0.70-1.30) 10/07/21 10:00 Est GFR (MDRD) Af Amer > 60 (>60) 10/07/21 10:00 Est GFR (MDRD) Non-Af > 60 (>60) 10/07/21 10:00 Glucose 117 mg/dL (65-99) H 10/07/21 10:00 Calcium 8.3 mg/dL (8.5-10.1) L 10/07/21 10:00 Corrected Calcium 9.2 mg/dL (8.5-10.1) 10/07/21 10:00 Total Bilirubin 1.10 mg/dL (0.2-1.0) H 10/07/21 10:00 AST 43 Units/L (15-37) H 10/07/21 10:00 ALT 21 Units/L (12-78) 10/07/21 10:00 Alkaline Phosphatase 75 Units/L (46-116) 10/07/21 10:00 Creatine Kinase 73 Units/L (39-308) 10/07/21 10:00 CK-MB (CK-2) 1.6 ng/mL (0-4.0) 10/07/21 10:00 CK/CKMB % Calc 2.2 % (<4) 10/07/21 10:00 Troponin I < 0.02 ng/mL (0-1.5) 10/07/21 10:00 Total Protein 7.1 g/dL (6.4-8.2) 10/07/21 10:00 Albumin 2.9 g/dL (3.4-5.0) L 10/07/21 10:00 Globulin 4.2 g/dL (2.5-4.5) 10/07/21 10:00 Albumin/Globulin Ratio 0.7 Ratio (1.1-2.1) L 10/07/21 10:00 SARS CoV-2 RNA Rapid CORDELL Negative (NEGATIVE) 10/07/21 10:36 XRAY XRAY Interpreted by: Self X-ray Results: CXR: cardiomegaly with vascular congestion. Radiology report is pending. EKG Rate: 100 [place]: Normal Rhythm: NSR Block: None Hypertrophy: None ST: Normal Opioid Opioid Risk Tool Age (Carlos Enrique box if 16-45): No History of Preadolescent Sexual Abuse: No Total: 0 Total Score Risk Category: Low Risk Copyright: [facility] predicting aberrant behaviors Diagnosis Discharge Problem: Heart failure, diastolic, with acute decompensation, PAD (peripheral artery disease), Pulmonary artery hypertension COPD (chronic obstructive pulmonary disease) with emphysema Qualifiers: Emphysema type: unspecified Qualified Code(s): J43.9 - Emphysema, unspecified ADDITIONAL NOTES Additional Notes Additional Notes: Name: Randy BARNETT#: [id number]: [id number] : 2Sex: MLocation: ER Order Number(s): [id number](s):CHEST, 1 VIEW Ordering Physician: STEVEN DAVIDSON Primary Care: [facility] Service Date: 10/07/21 Service Time: 1004 HISTORY DYSPNEA HTN, COPD, CHF, ORTHO STUDY CHEST, 1 VIEW COMPARISON 09/23/2020 FINDINGS The trachea is midline. There is mild cardiomegaly. There is persistent vascular cephalization. No pleural effusions or pneumothorax. There is bibasal radiopacities IMPRESSION Symmetric bibasal ground-glass radiopacities with central vascular congestion could represent pulmonary edema, no dominant effusions. No pneumothorax. Electronically signed by: Jesusita Moss (Oct 07, 2021 10:49:51) Report Electronically signed: 10/07/21 1051 CC: Steven Davidson
[2021-10-07 10:34] LABS: ALANINE AMINOTRANSFERASE 21 Units/L (12-78); ALBUMIN 2.9 g/dL (3.4-5.0); ALKALINE PHOSPHATASE 75 Units/L (46-116); ASPARTATE AMINO TRANSFERASE 43 Units/L (15-37); BLOOD UREA NITROGEN 23 mg/dL (7-18); CALCIUM 8.3 mg/dL (8.5-10.1); CARBON DIOXIDE 31.4 mmol/L (21-32); CHLORIDE 99 mmol/L (98-107); CKMB % 2.2 % (<4); COR CA(FOR HYPOALB) 9.2 mg/dL (8.5-10.1); COR NA(FOR HYPERGLY) 135 mmol/L (136-145); CREATINE KINASE 73 Units/L (39-308); CREATINE KINASE MB 1.6 ng/mL (0-4.0); SODIUM 135 mmol/L (136-145); TOTAL PROTEIN 7.1 g/dL (6.4-8.2); TROPONIN I < 0.02 ng/mL (0-1.5); eGFR NON BLACK RACES > 60 (>60)
[2021-10-07 10:45] LABS: BASOPHILS % (AUTO) 0.7 % (0.2-1.0); EOSINOPHILS # (AUTO) 0.1 x10^3/uL (0.0-0.2); EOSINOPHILS % (AUTO) 1.2 % (0.9-2.9); LYMPHOCYTES # (AUTO) 1.2 X10^3/uL (1.3-2.9); LYMPHOCYTES % (AUTO) 18.2 % (21.0-51.0); MEAN CORPUSCULAR HEMOGLOBIN 23.7 pg (27.0-34.0); MEAN CORPUSCULAR HGB CONC 30.4 g/dL (33.0-35.0); MEAN CORPUSCULAR VOLUME 77.7 fL (80.0-100.0); MEAN PLATELET VOLUME 9.2 fL (7.4-11.0); MONOCYTES # (AUTO) 0.8 x10^3/uL (0.3-0.8); MONOCYTES % (AUTO) 12.1 % (0.0-13.0); NEUTROPHILS # (AUTO) 4.5 x10^3/uL (2.2-4.8); NEUTROPHILS % (AUTO) 67.8 % (42.0-75.0); PLATELET COUNT 159 X10^3/uL (150.0-450.0); RED BLOOD COUNT 8.35 X10^6/uL (4.7-6.0); RED CELL DISTRIBUTION WIDTH 23.1 % (11.6-16.5); WHITE BLOOD COUNT 6.6 X10^3/uL (3.6-10.0)
--- NOTE | 2021-10-07 10:51 | RAD ---
HISTORYDYSPNEA HTN, COPD, CHF, ORTHOSTUDYCHEST, 1 [id number]/03/2020FINDINGSThe trachea is midline. There is mild cardiomegaly. There is persistent vascular cephalization. No pleural effusions or pneumothorax. There is bibasal radiopacitiesIMPRESSIONSymmetric bibasal ground-glass radiopacities with central vascular congestion could represent pulmonary edema, no dominant effusions. No pneumothorax.Electronically signed by: Jesusita Moss (Oct 07, 2021 10:49:51)
[2021-10-07 10:52] LABS: HEMOGLOBIN 19.8 g/dL (13.5-18.0)
[2021-10-07 10:53] LABS: HEMATOCRIT 64.9 % (42.0-54.0)
[2021-10-07 11:02] LABS: ANISOCYTOSIS 2+; PLATELET MORPHOLOGY COMMENT NORMAL (NORMAL)
[2021-10-07] MEDS: NEURONTIN CAP 300 MG PO SCH ×2 (15:53→21:42)
[2021-10-07] MEDS: DUONEB 0.5 MG/3 MG (3 mL) NEB SCH ×2 (16:25→20:46)
[2021-10-07] MEDS ORDERED: LASIX IVP SCH (17:00)
[2021-10-07] MEDS: PULMICORT NEB TX 0.5 MG NEB SCH (20:46)
[2021-10-07] MEDS ORDERED: PATIENT'S HOME MEDICATION (Budesonide-Glycopyr-Formoterol [Breztri Aerosphere] 160-9-4.8 m IN SCH (21:00)
[2021-10-07] MEDS: ENTRESTO 24/26 MG TAB PO SCH (21:42)
[2021-10-07] MEDS: LIPITOR TAB 40 MG PO SCH (21:42)
[2021-10-07] MEDS: K-DUR TAB 20 MEQ PO SCH ×2 (21:44→21:45)
[2021-10-08] MEDS: NEURONTIN CAP 300 MG PO SCH ×3 (05:41→21:32)
[2021-10-08 06:21] LABS: ALANINE AMINOTRANSFERASE 17 Units/L (12-78); ALBUMIN 2.6 g/dL (3.4-5.0); ALKALINE PHOSPHATASE 66 Units/L (46-116); ASPARTATE AMINO TRANSFERASE 19 Units/L (15-37); BASOPHILS # (AUTO) 0.1 X10^3/uL (0.0-0.1); BASOPHILS % (AUTO) 1.1 % (0.2-1.0); BLOOD UREA NITROGEN 21 mg/dL (7-18); CALCIUM 8.3 mg/dL (8.5-10.1); CARBON DIOXIDE 34.8 mmol/L (21-32); CHLORIDE 102 mmol/L (98-107); CHOL/HDL RATIO 2.5 (0.0-5.0); CHOLESTEROL 82 mg/dL (0-200); COR CA(FOR HYPOALB) 9.4 mg/dL (8.5-10.1); COR NA(FOR HYPERGLY) 139 mmol/L (136-145); CREATININE 0.87 mg/dL (0.70-1.30); EOSINOPHILS # (AUTO) 0.1 x10^3/uL (0.0-0.2); HDL CHOLESTEROL 33 mg/dL (40-60); HEMOGLOBIN 18.6 g/dL (13.5-18.0); LYMPHOCYTES % (AUTO) 15.6 % (21.0-51.0); MEAN CORPUSCULAR HEMOGLOBIN 23.8 pg (27.0-34.0); MEAN CORPUSCULAR HGB CONC 30.2 g/dL (33.0-35.0); MEAN CORPUSCULAR VOLUME 78.7 fL (80.0-100.0); MONOCYTES # (AUTO) 0.7 x10^3/uL (0.3-0.8); MONOCYTES % (AUTO) 12.3 % (0.0-13.0); NEUTROPHILS # (AUTO) 4.2 x10^3/uL (2.2-4.8); PLATELET COUNT 150 X10^3/uL (150.0-450.0); RED BLOOD COUNT 7.82 X10^6/uL (4.7-6.0); RED CELL DISTRIBUTION WIDTH 23.2 % (11.6-16.5); SODIUM 139 mmol/L (136-145); TOTAL PROTEIN 6.2 g/dL (6.4-8.2); TRIGLYCERIDES 47 mg/dL (0-150); WHITE BLOOD COUNT 6.1 X10^3/uL (3.6-10.0); eGFR NON BLACK RACES > 60 (>60)
[2021-10-08 06:50] LABS: HEMATOCRIT 61.6 % (42.0-54.0)
[2021-10-08 07:09] LABS: ANISOCYTOSIS 2+; PLATELET MORPHOLOGY COMMENT NORMAL (NORMAL)
[2021-10-08] MEDS: DUONEB 0.5 MG/3 MG (3 mL) NEB SCH ×4 (08:46→20:18)
[2021-10-08] MEDS: PULMICORT NEB TX 0.5 MG NEB SCH ×2 (08:46→20:18)
[2021-10-08] MEDS: ASPIRIN EC 81 MG PO SCH (08:50)
[2021-10-08] MEDS: ENTRESTO 24/26 MG TAB PO SCH ×2 (08:50→20:49)
[2021-10-08] MEDS: ZyrTEC TAB 10 MG PO SCH (08:51)
[2021-10-08] MEDS: K-DUR TAB 20 MEQ PO SCH ×2 (08:51→20:49)
[2021-10-08] MEDS: PLAVIX PO SCH (08:51)
[2021-10-08] MEDS: LASIX IVP SCH ×3 (08:51→21:32)
[2021-10-08] MEDS ORDERED: LASIX IVP SCH ×2 (09:00)
--- NOTE | 2021-10-08 09:01 | RAD ---
HISTORYHYPOXIA, O2 SATS 78%STUDYCHEST, 1 [id number]/17/2021.TECHNIQUEAP view of the chestFINDINGSSoft tissue attenuation limits evaluation. Cardiac silhouette is stably enlarged. Mediastinal contours appear normal. Similar appearance of hazy bilateral airspace opacities in the mid to lower lungs. No discernible pleural effusion or pneumothorax.IMPRESSIONNo significant change from recent prior.Electronically signed by: Roderick Holder (Oct 08, 2021 08:58:47)
[2021-10-08] MEDS: LOVENOX INJ 40 MG SYR SC SCH (10:25)
[2021-10-08] MEDS: CLEOCIN 600 MG IV PREMIX 600 MG/50 ML BAG IV SCH ×2 (17:01→21:32)
[2021-10-08] MEDS: LIPITOR TAB 40 MG PO SCH (20:50)
--- NOTE | 2021-10-08 23:35 | DR.H&P ---
H&P - History & Physical for Day of: H&P Date: 10/07/21 - Chief Complaint Chief Complaint: SOB - History of Present Illness History of Present Illness: PATIENT IS A 61 YEAR OLD WHITE MALE WHO WAS SENT TO ER FROM PCP OFFICE DUE TO HYPOXIA. OXYGEN SAT AT PCP OFFICE WAS REPORTED RANGING 60%. PATIENT DOES HAVE A PMH HISTORY OF CHRONIC RESP FAILURE AND BASELINE OXYGEN SAT RANGES IN THE MID TO HIGH 80S. PATIENT HAS BEEN FULLY VACCINATED FOR COVID 19. PATIENT STATES HE HAS OXYGEN AT HOME. PATIENT DOES REPORT SOB HOWEVER HE ALSO HAS CHRONIC DYSPNEA. STATES DYSPNEA IS WORSE WITH EXERTION. DENIES FEVER CHILLS CP NAUSEA. PMH COPD, CHRONIC RESP FAILURE, MORBID OBESITY, PAD, PULM HTN, CHF. - Past Medical History Past Medical History: Hypertension, COPD, CHF Additional Medical History: PAD/PVD, CHRONIC VENOUS STASIS - Past Surgical History Surgical History: Ortho Surgery - Family History Family Medical History: Diabetes Mellitus, Cancer, Coronary Artery Disease, Heart Failure, Hypertension - Social History Does patient currently use any type of tobacco product: No Have you used tobacco products in the last 12 months: No Type of Tobacco Use: None Does any household member use tobacco: No Alcohol Use: Rarely Drug Use: None - Medications Home Medications: No Known Drug Allergies Allergy (Verified 09/13/20 13:27) CONTINUE taking the following medications aspirin [Aspir-81] 162 mg PO DAILY 10/07/21 [History] atorvastatin 40 mg PO HS 10/07/21 [History] [id number] [Breztri Aerosphere] 2 inh INHALATION BID 10/07/21 [History] cetirizine [Zyrtec] 10 mg PO DAILY 10/07/21 [History] clopidogrel [Plavix] 75 mg PO DAILY 10/07/21 [History] furosemide [Lasix] 40 mg PO DAILY 10/07/21 [History] gabapentin [Neurontin] 300 mg PO TID 10/07/21 [History] sacubitril-valsartan [Entresto] 1 tab PO BID 10/07/21 [History] - Review of Systems Constitutional: See HPI Eyes: See HPI ENT: See HPI Respiratory: See HPI Cardiovascular: See HPI Gastrointestinal: See HPI Genitourinary: See HPI Musculoskeletal: See HPI Skin: See HPI Neurological: See HPI - Physical Exam Vital Signs: Temperature 98.6 F Pulse Rate [Left Radial] 96 Pulse Rate 73 Respiratory Rate 20 Blood Pressure [Right Arm] 110/71 Blood Pressure 158/120 O2 Sat by Pulse Oximetry 87 Oriented: Normal, Time, Person, Place Eyes: Normal Ear: Normal Nose: Normal Throat: Normal Respiratory: Rhonchi Throughout, Wheezes Throughout Cardiovascular: Normal : Normal Auscultation: Bowel Sounds: Normal Palpation: Normal Tenderness: Normal Skin: Normal Musculoskeletal: Instability (GENERALIZED WEAKNESS) Psychiatric: Normal Mood Description: Calm, Happy Affect: Normal Speech Pattern: Clear, Appropriate - Assessment/Plan (1) SOB (shortness of breath) Status: Acute Plan: TREND ABGS AND CXR, CULTURES PENDING, SUPPLEMENTAL OXYGEN, REPEAT LABS IN AM, IV ABX AND STEROIDS, DUO NEBS (2) Acute exacerbation of chronic obstructive pulmonary disease Status: Acute Plan: SEE ABOVE (3) PAD (peripheral artery disease) Status: Acute (4) Heart failure, diastolic, with acute decompensation Status: Acute Plan: LASIX IV - Allergies Allergies/Adverse Reactions: Allergies Allergy/AdvReac Type Severity Reaction Status Date / Time No Known Drug Allergies Allergy Verified 09/13/20 13:27
--- NOTE | 2021-10-08 23:47 | PCM.PROG ---
Progress Note - Subjective Subjective: PATIENT IS A 61 YEAR OLD WHITE MALE WHO WAS ADMITTED PER HPI. PATIENT REPORTS IMPROVEMENT OF SYMPTOMS. HISTORY OF CHRONIC RESP FAILURE THEREFORE REQUIRING OXYGEN SUPPLEMENTATION VIA NASAL CANNULA CURRENTLY AT APPROXIMATELY 5L/MIN. PATIENT DOES REPORT INCREASED ERYTHEMA, TENDERNESS, AND WHEEPING OF BILATERAL LOWER EXT WHICH HAS BEEN GETTING WORSE OVER THE PAST SEVERAL DAYS-WEEK. PATIENT HAS CHRONIC PAD OF LOWER EXTREMITIES AND THEREFORE HAS CHRONIC DISCOLORATION OF BILATERAL LOWER EXT. QUESTIONS ANSWERED AND CONCERNS ADDRESSED. - Past Medical Family Social History Past Med/Fam/Surg Hx: No changes since H&P Allergies: Allergies No Known Drug Allergies Allergy (Verified 09/13/20 13:27) - Review of Systems ROS: No change since H&P - Vital Signs and I&O's Vital Signs: Temperature 98.6 F Pulse Rate [Left Radial] 96 Pulse Rate 73 Respiratory Rate 20 Blood Pressure [Right Arm] 110/71 Blood Pressure 158/120 O2 Sat by Pulse Oximetry 87 Intake and Output: Intake & Output 10/05/21 10/06/21 10/07/21 10/08/21 23:59 23:59 23:59 23:59 Intake Total 1422 / 1422 2430 / 2430 Output Total 2400 / 2400 2900 / 2900 Balance -978 / -978 -470 / -470 - Physical Exam Oriented: Normal, Time, Person, Place Eyes: Normal Ear: Normal Nose: Normal Throat: Normal Respiratory: Wheezes, Rhonchi Cardiovascular: Normal : Normal Auscultation: Bowel Sounds: Normal Tenderness: Normal Skin: Normal, Other (BILATERAL LOWER EXT ERYTHEMA, DISCOLORATION, TEDNERNESS, WARMTH. WHEEPING NOTED TO LEFT LOWER EXT > THAN RIGHT. ) Musculoskeletal: Instability (GENERALIZED WEAKNESS) Psychiatric: Normal Mood Description: Calm, Happy Affect: Normal Speech Pattern: Clear, Appropriate - Laboratory and Diagnostics Result Diagrams: 10/08/21 05:00 10/08/21 05:00 Labs: Laboratory WBC 6.1 X10^3/uL (3.6-10.0) 10/08/21 05:00 RBC 7.82 X10^6/uL (4.7-6.0) H 10/08/21 05:00 Hgb 18.6 g/dL (13.5-18.0) H 10/08/21 05:00 Hct 61.6 % (42.0-54.0) H* 10/08/21 05:00 MCV 78.7 fL (80.0-100.0) L 10/08/21 05:00 MCH 23.8 pg (27.0-34.0) L 10/08/21 05:00 MCHC 30.2 g/dL (33.0-35.0) L 10/08/21 05:00 RDW 23.2 % (11.6-16.5) H 10/08/21 05:00 Plt Count 150 X10^3/uL (150.0-450.0) 10/08/21 05:00 Plt Count Comment Adequate (ADEQUATE) 10/08/21 05:00 MPV 9.0 fL (7.4-11.0) 10/08/21 05:00 Neut % (Auto) 69.0 % (42.0-75.0) 10/08/21 05:00 Lymph % (Auto) 15.6 % (21.0-51.0) L 10/08/21 05:00 [place] % (Auto) 12.3 % (0.0-13.0) 10/08/21 05:00 Eos % (Auto) 2.0 % (0.9-2.9) 10/08/21 05:00 Baso % (Auto) 1.1 % (0.2-1.0) H 10/08/21 05:00 Neut # (Auto) 4.2 x10^3/uL (2.2-4.8) 10/08/21 05:00 Lymph # (Auto) 1.0 X10^3/uL (1.3-2.9) L 10/08/21 05:00 [place] # (Auto) 0.7 x10^3/uL (0.3-0.8) 10/08/21 05:00 Eos # (Auto) 0.1 x10^3/uL (0.0-0.2) 10/08/21 05:00 Baso # (Auto) 0.1 X10^3/uL (0.0-0.1) 10/08/21 05:00 Absolute Nucleated RBC 0.4 /100WBC 10/08/21 05:00 Plt Morphology Comment Normal (NORMAL) 10/08/21 05:00 RBC Morphology Abnormal (NORMAL) 10/08/21 05:00 Anisocytosis 2+ A 10/08/21 05:00 D-Dimer 0.44 ug/ml (0.0-0.57) 10/07/21 10:00 Sample Site Rrad 10/07/21 09:55 ABG pH 7.360 (7.35-7.45) 10/07/21 09:55 ABG pCO2 50.0 mmHg (35.0-45.0) H 10/07/21 09:55 ABG pO2 93.0 mmHg (80.0-100.0) 10/07/21 09:55 ABG HCO3 28.2 mmol/L (22-26) H 10/07/21 09:55 ABG O2 Saturation 97.0 % (90-100) 10/07/21 09:55 ABG Base Excess 2.0 mmol/L (-2.0-2.0) 10/07/21 09:55 Alpesh Test Pos 10/07/21 09:55 A-a Gradient 558.0 mmHg 10/07/21 09:55 FiO2 100.0 10/07/21 09:55 Blood Gas Comments Pt song well elj 10/07/21 09:55 Sodium 139 mmol/L (136-145) 10/08/21 05:00 Corrected Sodium 139 mmol/L (136-145) 10/08/21 05:00 Potassium 4.5 mmol/L (3.5-5.1) 10/08/21 05:00 Chloride 102 mmol/L (98-107) 10/08/21 05:00 Carbon Dioxide 34.8 mmol/L (21-32) H 10/08/21 05:00 BUN 21 mg/dL (7-18) H 10/08/21 05:00 Creatinine 0.87 mg/dL (0.70-1.30) 10/08/21 05:00 Est GFR (MDRD) Af Amer > 60 (>60) 10/08/21 05:00 Est GFR (MDRD) Non-Af > 60 (>60) 10/08/21 05:00 Glucose 119 mg/dL (65-99) H 10/08/21 05:00 Calcium 8.3 mg/dL (8.5-10.1) L 10/08/21 05:00 Corrected Calcium 9.4 mg/dL (8.5-10.1) 10/08/21 05:00 Total Bilirubin 0.80 mg/dL (0.2-1.0) 10/08/21 05:00 AST 19 Units/L (15-37) 10/08/21 05:00 ALT 17 Units/L (12-78) 10/08/21 05:00 Alkaline Phosphatase 66 Units/L (46-116) 10/08/21 05:00 Creatine Kinase 73 Units/L (39-308) 10/07/21 10:00 CK-MB (CK-2) 1.6 ng/mL (0-4.0) 10/07/21 10:00 CK/CKMB % Calc 2.2 % (<4) 10/07/21 10:00 Troponin I < 0.02 ng/mL (0-1.5) 10/07/21 10:00 Total Protein 6.2 g/dL (6.4-8.2) L 10/08/21 05:00 Albumin 2.6 g/dL (3.4-5.0) L 10/08/21 05:00 Globulin 3.6 g/dL (2.5-4.5) 10/08/21 05:00 Albumin/Globulin Ratio 0.7 Ratio (1.1-2.1) L 10/08/21 05:00 Triglycerides 47 mg/dL (0-150) 10/08/21 05:00 Cholesterol 82 mg/dL (0-200) 10/08/21 05:00 LDL Cholesterol, Calc 40 mg/dL (0-100) 10/08/21 05:00 HDL Cholesterol 33 mg/dL (40-60) L 10/08/21 05:00 Cholesterol/HDL Ratio 2.5 (0.0-5.0) 10/08/21 05:00 SARS CoV-2 RNA Rapid CORDELL Negative (NEGATIVE) 10/07/21 10:36 - Plan (1) SOB (shortness of breath) Status: Acute Plan: TREND ABGS AND CXR, CULTURES PENDING, SUPPLEMENTAL OXYGEN, REPEAT LABS IN AM, IV ABX AND STEROIDS, DUO NEBS (2) Acute exacerbation of chronic obstructive pulmonary disease Status: Acute Plan: SEE ABOVE (3) PAD (peripheral artery disease) Status: Acute (4) Heart failure, diastolic, with acute decompensation Status: Acute Plan: LASIX IV (5) Bilateral lower leg cellulitis Status: Acute Plan: ADD CLINDAMYCIN IV
[2021-10-09 05:20] LABS: ABG BASE EXCESS 10.4 mmol/L (-2.0-2.0); ABG HCO3 38.4 mmol/L (22-26)
[2021-10-09 05:21] LABS: ABG ALLEN TEST POS
[2021-10-09] MEDS: NEURONTIN CAP 300 MG PO SCH (06:04)
[2021-10-09] MEDS: CLEOCIN 600 MG IV PREMIX 600 MG/50 ML BAG IV SCH (06:04)
[2021-10-09 06:26] LABS: ALANINE AMINOTRANSFERASE 14 Units/L (12-78); ALBUMIN 2.7 g/dL (3.4-5.0); ALKALINE PHOSPHATASE 68 Units/L (46-116); ASPARTATE AMINO TRANSFERASE 15 Units/L (15-37); BLOOD UREA NITROGEN 19 mg/dL (7-18); CALCIUM 8.4 mg/dL (8.5-10.1); CARBON DIOXIDE 34.6 mmol/L (21-32); CHLORIDE 101 mmol/L (98-107); COR CA(FOR HYPOALB) 9.4 mg/dL (8.5-10.1); COR NA(FOR HYPERGLY) 138 mmol/L (136-145); CREATININE 0.79 mg/dL (0.70-1.30); MAGNESIUM 2.4 mg/dL (1.7-2.9); SODIUM 138 mmol/L (136-145); TOTAL PROTEIN 6.4 g/dL (6.4-8.2); eGFR NON BLACK RACES > 60 (>60)
[2021-10-09 06:49] LABS: BASOPHILS # (AUTO) 0.1 X10^3/uL (0.0-0.1); BASOPHILS % (AUTO) 1.2 % (0.2-1.0); EOSINOPHILS # (AUTO) 0.1 x10^3/uL (0.0-0.2); EOSINOPHILS % (AUTO) 2.1 % (0.9-2.9); HEMOGLOBIN 18.5 g/dL (13.5-18.0); LYMPHOCYTES # (AUTO) 0.7 X10^3/uL (1.3-2.9); LYMPHOCYTES % (AUTO) 11.8 % (21.0-51.0); MEAN CORPUSCULAR HEMOGLOBIN 23.5 pg (27.0-34.0); MEAN CORPUSCULAR HGB CONC 30.2 g/dL (33.0-35.0); MEAN CORPUSCULAR VOLUME 77.9 fL (80.0-100.0); MEAN PLATELET VOLUME 9.4 fL (7.4-11.0); MONOCYTES # (AUTO) 0.6 x10^3/uL (0.3-0.8); MONOCYTES % (AUTO) 9.8 % (0.0-13.0); NEUTROPHILS # (AUTO) 4.5 x10^3/uL (2.2-4.8); NEUTROPHILS % (AUTO) 75.1 % (42.0-75.0); PLATELET COUNT 140 X10^3/uL (150.0-450.0); RED BLOOD COUNT 7.87 X10^6/uL (4.7-6.0); RED CELL DISTRIBUTION WIDTH 23.1 % (11.6-16.5)
[2021-10-09 06:54] LABS: HEMATOCRIT 61.3 % (42.0-54.0)
[2021-10-09 06:55] LABS: PLATELET MORPHOLOGY COMMENT NORMAL (NORMAL)
[2021-10-09 06:56] LABS: ANISOCYTOSIS 2+
[2021-10-09] MEDS: ASPIRIN EC 81 MG PO SCH (08:03)
[2021-10-09] MEDS: ENTRESTO 24/26 MG TAB PO SCH (08:04)
[2021-10-09] MEDS: K-DUR TAB 20 MEQ PO SCH (08:04)
[2021-10-09] MEDS: ZyrTEC TAB 10 MG PO SCH (08:04)
[2021-10-09] MEDS: LOVENOX INJ 40 MG SYR SC SCH (08:06)
[2021-10-09] MEDS: PLAVIX PO SCH (08:07)
--- NOTE | 2021-10-09 08:14 | RAD ---
HISTORYPULMONARY EDEMASTUDYCHEST x-ray, 1 VIEWCOMPARISONX-ray 10/08/2021FINDINGSProbable CHF and pulmonary edema. Appearance is very similar to prior study. Left CP angle is excluded on the study. Pneumothorax or pleural effusion is seen.IMPRESSIONLikely persistent CHF and pulmonary edema.Electronically signed by: Giovanni Siddiqui (Oct 09, 2021 08:13:36)
[2021-10-09] MEDS ORDERED: LASIX IVP SCH ×2 (09:00)
[2021-10-09] MEDS: DUONEB 0.5 MG/3 MG (3 mL) NEB SCH ×2 (09:02→13:10)
[2021-10-09] MEDS: PULMICORT NEB TX 0.5 MG NEB SCH (09:02)
[2021-10-09 12:23] VITALS: BP 130/52
== END 2021-10-09 13:45 | disposition short-term general hospital (02) | DRG 292 ==
LOC: ER 09:59 → MED/SURG 09:59
PROVIDERS: ADMIT Internal Medicine; ATTEND Internal Medicine
DX: I50.33 Acute on chronic diastolic (congestive) heart failure; Z99.81 Dependence on supplemental oxygen; J44.1 Chronic obstructive pulmonary disease with (acute) exacerbation; I83.018 Varicose veins of right lower extremity with ulcer other part of lower leg; R94.31 Abnormal electrocardiogram [ECG] [EKG]; L97.819 Non-pressure chronic ulcer of other part of right lower leg with unspecified severity; R06.02 Shortness of breath; Z20.822 Contact with and (suspected) exposure to COVID-19; I73.89 Other specified peripheral vascular diseases; R26.89 Other abnormalities of gait and mobility; I10 Essential (primary) hypertension